=== PATIENT | female | born 1990 | race Caucasian/White ===

== ENCOUNTER → 2016-04-24 | Outpatient (CLI) | payer BC ==
[~2016-04-24] MED LIST: PRENTAB26 PO
--- NOTE | 2016-04-24 12:36 | MAMMOGRAPHY REPORT ---
ULTRASOUND OF RIGHT BREAST: 04/24/2016 CLINICAL HISTORY: 25-year-old woman stopped nursing her child and July 2015 and has felt a lump in the right upper outer quadrant since that time. She reports it is not increasing in size. No skin changes or nipple discharge. No family history of breast cancer. COMPARISON: No prior exams were available for comparison. FINDINGS: Targeted ultrasound was performed in the 10:30 right breast, 4 cm from the nipple, in the area of palpable lump pointed out by the patient. On visual inspection, there is a minimally eryth ematous 3-4 mm lesion on the skin of the 10:30 right breast. On ultrasound, there is an intradermal ovoid hypoechoic lesion. However, no punctum is identified extending to the skin surface. However , this most likely represents an epidermal inclusion cyst. Given that it does not meet all of the s onographic criteria, a short interval follow-up targeted right breast ultrasound is recommended to e nsure stability in 6 months. IMPRESSION: ACR-BI-RADS CATEGORY 3: PROBABLY BENIGN - FOLLOW-UP RECOMMENDED The small superficial palpable lump in the 10:30 right breast most likely represents an intradermal lesion such as an epidermal inclusion cyst. A short interval follow targeted right breast ultrasoun d is recommended to ensure stability and/or resolution in 6 months. These results and recommendatio ns were discussed with the patient at the time of the exam. Sharee Hendrickson M.D. ay/:04/24/2016 10:21:58 Supervisor [employer] Making: Sherlyn NAGEL)(Reji), [facility] letter sent: Follow Up Recommended 3 BI-RADS Code: ACR-BI-RADS Category 3: Probably Benign
== END | disposition home or self-care (01) ==
LOC: C.MAMM 09:41
PROVIDERS: ATTEND Obstetrics & Gynecology
DX: N63 Unspecified lump in breast (principal)

== ENCOUNTER → 2016-07-21 | Outpatient (CLI) | payer BC ==
[2016-07-21 09:37] LABS: PREG INTERNAL NEGATIVE QC NEG CLEAR BACKGROUND; PREG INTERNAL POSITIVE QC POS CONTROL LINE
== END | disposition home or self-care (01) ==
LOC: C.LAB1850 07:42
PROVIDERS: ATTEND Physician Assistant
DX: N64.52 Nipple discharge (principal); N91.2 Amenorrhea, unspecified

== ENCOUNTER 2021-01-02 02:00 | Inpatient (IN) ==
[2021-01-02] MEDS ORDERED: PENICILLIN G POTASSIUM 6 MU in DEXTROSE 5% 250 ML IV STA (02:49)
[2021-01-02 03:18] LABS: Hematocrit (blood only) 33.3 % (37-47); Hemoglobin 11.1 g/dL (12.0-16.0); Mean Corpuscular Hemoglobin 28.6 pg (25-34); Mean Corpuscular Hgb Conc 33.3 g/dL (32-36); Mean Corpuscular Volume 85.8 fL (80-100); Platelet Count 283 K/uL (130-400); RDW Coefficient of Variation 12.4 % (11.5-14.5); RDW Standard Deviation 38.5 fL (36.4-46.3); Red Blood Count 3.88 M/uL (4.2-5.4)
[2021-01-02] MEDS: LACTATED RINGER'S 1,000 ML IV PRN ×2 (03:26→07:59)
[2021-01-02] MEDS ORDERED: PENICILLIN G POTASSIUM 3 MU in DEXTROSE 5% 100 ML IV PRN (06:54)
[2021-01-02] MEDS ORDERED: ePHEDrine sulfate 50 MG/ML AMP ONE (07:15)
[2021-01-02] MEDS ORDERED: SODIUM CHLORIDE 0.9% INJ 10 ML VIAL ONE (07:15)
[2021-01-02] MEDS ORDERED: BUPIVACAINE 0.25% 30 ML VIAL ONE (07:15)
[2021-01-02] MEDS ORDERED: fentaNYL citrate 100 MCG/2 ML VIAL ONE (07:15)
[2021-01-02] MEDS ORDERED: fentaNYL 2MCG/ML ROPIVACAINE 1.25MG/ML 100 ML BAG EPI ONE (07:16)
[2021-01-02] MEDS ORDERED: fentaNYL 2MCG/ML ROPIVACAINE 1.25MG/ML 100 ML BAG EPI PRN (07:22)
[2021-01-02] MEDS ORDERED: diphenhydrAMINE 50 MG/ML VIAL IV PRN (07:22)
[2021-01-02] MEDS ORDERED: ePHEDrine sulfate 50 MG/ML AMP IV PRN (07:22)
[2021-01-02] MEDS ORDERED: NALOXONE HCL 1 MG in SODIUM CHLORIDE 0.9% 1000ML 1,000 ML IV PRN (07:22)
[2021-01-02] MEDS ORDERED: NALBUPHINE HCL INJ 10 MG/ML AMP IV PRN (07:22)
[2021-01-02] MEDS ORDERED: NALOXONE HCL 0.4 MG/1 ML VIAL/CARP IV PRN (07:22)
--- NOTE | 2021-01-02 07:22 | Anesthesiology Consultation ---
Date of Service January 02, 2021 Assessment & Plan ASA ASA2 Proposed Anesthesia Anesthesia Type: Labor Epidural Risk / Benefits Reviewed With: PT / POA / Parent / Guardian, Accepts Plan and Informed Consent Obtained History Height/Weight Height: 5 ft 3 in Weight: 92.533 kg Allergies Allergy/AdvReac Type Severity Reaction Status Date / Time Bactrim Allergy Unknown hives Verified 03/31/15 20:40 cephalexin Allergy Unknown hives Verified 01/02/21 02:25 sulfamethoxazole Allergy Unknown hives Verified 01/02/21 02:25 trimethoprim Allergy Unknown hives Verified 01/02/21 02:25 Medications Home Medications Medication Instructions Recorded Confirmed Last Taken prenat.vits,yash,mnl-acdi-ardsu 1 tab PO DAILY 06/15/20 12/31/20 Unknown acetone (urine) test (Ketone Urine #50 ea 07/02/20 12/31/20 Unknown Test) blood sugar diagnostic (OneTouch #150 ea 07/02/20 12/31/20 Unknown Verio test strips) blood-glucose meter (OneTouch #1 ea 07/02/20 12/31/20 Unknown Verio Flex meter) lancets 33 gauge (OneTouch Delica #150 ea 07/02/20 12/31/20 Unknown Plus Lancet) Active Medications Generic Name Dose Route Start Last Admin Trade Name Freq PRN Reason Stop Dose Admin Lactated Ringer's 1,000 mls @ 125 mls/hr 01/02/21 02:49 01/02/21 07:12 Lr IV 01/04/21 02:48 999 mls/hr .Q8H PRN Infusion L&D Protocol Protocol Penicillin G Potassium 3 mu/ 106 mls @ 100 mls/hr 01/02/21 06:54 01/02/21 07:11 Dextrose IV 01/12/21 06:53 100 mls/hr Q4H PRN Administration Give until delivery Past Medical History Medical History (Updated 09/17/20 @ 11:51 by La Oh MD) Kidney stones Exercise / Class Metabolic Activity II 4-5 Yardwork/Stairs/Walk up hill Past Family History Family History (Updated 06/14/20 @ 16:40 by Malia Stratton) Mother Ovarian cancer Past Surgical History Surgical History (Updated 06/25/20 @ 08:22 by Zoe Dukes MD) Hx of appendectomy S/P wisdom tooth extraction Past Anesthesia History No Hx of Anesthesia Complications and No Family Hx of Anesthesia Complications History of PONV No Hx of PONV and No Hx of Motion Sickness Social History Smoking Status: Never smoker Hx Alcohol Use: No Hx Substance Use: No Review of Systems denies fever/cough/ colds/ chest pain/ SOB/ VINCENZO denies VINCENZO Physical Exam Vital Signs Last Vital Signs Temp 36.6 C 01/02/21 07:19 Pulse 99 H 01/02/21 07:48 Resp 24 01/02/21 07:19 BP 158/58 H 01/02/21 07:46 Pulse Ox 99 01/02/21 07:48 ENMT Mouth: no TMJ abnormality and no dentition abnormality Thyromental Distance: > or= 3.5 Finger Breadths Mallampati Class: II Neck neck extension not limited Respiratory normal respiratory effort; no respiratory distress Auscultation: lungs clear to auscultation bilaterally Cardiovascular Rate/Rhythm: regular rate and regular rhythm Neurologic moves all extremities Psychiatric Orientation: alert and oriented x 3 Testing Laboratory Results 01/02/21 03:11 01/02/21 03:10 POC Glucose 104 H
[2021-01-02] MEDS: OXYTOCIN 30 UNITS/500 ML BAG IV PRN ×2 (08:14→08:48)
[2021-01-02] MEDS ORDERED: LIDOCAINE 1% LOCAL 20 ML VIAL ONE ×2 (08:17→08:29)
[2021-01-02] MEDS ORDERED: SUPERCREAM 0.870% 15 GM JAR EXT PRN (08:47)
[2021-01-02] MEDS ORDERED: DIPHTHERIA/TETANUS/PERTUSSIS 0.5 ML SYR/VIAL IM ONE (08:47)
[2021-01-02] MEDS ORDERED: OXYTOCIN 30 UNITS/500 ML BAG IV PRN (08:47)
[2021-01-02] MEDS ORDERED: ACETAMINOPHEN 325 MG TAB PO PRN (08:47)
[2021-01-02] MEDS ORDERED: IBUPROFEN 600 MG TAB PO PRN (08:47)
[2021-01-02] MEDS ORDERED: BENZOCAINE 20% AER SPR 82.5 GM CAN EXT PRN (08:47)
[2021-01-02] MEDS ORDERED: HYDROCORTISONE ACETATE 25 MG SUPP PR PRN (08:47)
[2021-01-02 09:03] LABS: Base Excess Cord Venous Blood -5.9 mEq/L (-7.7-1.9); Cord Venous Blood HCO3 18 mmol/L (18.4-26.8); Cord Venous Blood PCO2 30 mmHg (30.4-57.2); Cord Venous Blood PO2 32 mmHg (14.1-43.3); Cord Venous Blood pH 7.39 (7.20-7.44)
--- NOTE | 2021-01-02 09:38 | Delivery Summary ---
DATE OF PROCEDURE: 01/02/2021. PROCEDURE: Normal spontaneous vaginal delivery with second-degree perineal laceration repair. SURGEON: Reese Gastelum MD. PREOPERATIVE DIAGNOSES: 1. Single intrauterine at 36 weeks, 0 days gestational age. 2. Spontaneous rupture of membranes with spontaneous labor. 3. Diet-controlled gestational diabetes. POSTOPERATIVE DIAGNOSES: 1. Single intrauterine at 36 weeks, 0 days gestational age. 2. Spontaneous rupture of membranes with spontaneous labor. 3. Diet-controlled gestational diabetes. 4. Status post delivery. ESTIMATED BLOOD LOSS: 300 mL. DRAINS: Straight cath. COMPLICATIONS: None. FINDINGS: Viable female with weight pending and Apgars of 7 and 8 in one and five minutes res pectively. INDICATIONS: The patient is a 30-year-old G2, P1 at 36 weeks, 0 days gestational age, admitted for sp ontaneous rupture of membranes with onset of labor. I first checked, the patient was found to be 3-4 cm dilated with rupture of membranes confirmed AmniSure. The patient was lashon every 3-4 minut es and progressed in labor quickly to complete-complete, +2 station with a strong urge to push of barbara roximately 4-5 hours. The patient pushed over 1 contraction to achieve delivery. DESCRIPTION OF PROCEDURE: The patient progressed to 10 cm dilated, 100% effaced, positive 2 station, pushed over intact perineum with epidural anesthesia, delivered a viable female with weight a nd Apgars as noted above. Head of the delivered in DEVEN position, restituted to right transve rse. Body and shoulders quickly followed. was noted to have good tone, but would not have s pontaneous cry upon delivery. The was stimulated and had intermittent crying with good tone. After approximately 30-45 seconds was still noted to not have a normal spontaneous cry. Dec ision was made to clamp, cut the cord. Cord was double clamped and cut. was taken over to t he waiting nursery staff for further evaluation. Cord segment was obtained. Cord blood was also obt ained. There was noted to be a true knot in the umbilical cord upon delivery. The attention was then turned to delivery of placenta, which was delivered intact, 3-vessel cord, gentle cord traction. On inspection of the perineum, vagina, cervix, there was noted to be a second-degree perineal laceratio n, which was repaired with 3-0 Vicryl in a continuous crown stitch. Needle, sponge, and instrument c ounts were correct at the completion of the case. Both mother and were stable in the immedia te post-delivery period. Job ID: [id number]
--- NOTE | 2021-01-02 10:28 | Anesthesiology Progress Note ---
Date of Service January 02, 2021 Anesthesia Post Procedure Vital Signs Vital Signs: Temp Pulse Resp BP Pulse Ox 01/02/21 10:21 87 144/97 H 01/02/21 10:06 82 142/71 H 01/02/21 09:51 93 H 151/72 H 01/02/21 09:45 20 01/02/21 09:36 90 150/74 H 01/02/21 09:30 20 01/02/21 09:20 86 148/86 H 01/02/21 09:15 18 01/02/21 09:06 89 144/88 H 01/02/21 09:00 20 01/02/21 08:48 98 H 151/74 H 01/02/21 08:45 18 01/02/21 08:43 103 H 164/77 H 01/02/21 08:39 99 H 97 01/02/21 08:38 103 H 161/72 H 01/02/21 08:34 101 H 99 01/02/21 08:33 102 H 157/69 H 01/02/21 08:29 109 H 98 01/02/21 08:28 109 H 157/70 H 90 01/02/21 08:25 105 H 166/60 H 01/02/21 08:24 114 H 99 01/02/21 08:22 112 H 174/81 H 01/02/21 08:19 118 H 92 01/02/21 08:17 108 H 92 01/02/21 08:15 101 H 185/101 H 01/02/21 08:13 104 H 99 01/02/21 08:08 156 H 96 01/02/21 08:05 107 H 135/77 01/02/21 08:03 105 H 98 01/02/21 08:01 96 H 91 01/02/21 07:58 95 H 136/77 97 01/02/21 07:56 93 H 141/78 H 01/02/21 07:54 107 H 147/65 H 94 01/02/21 07:53 93 H 98 01/02/21 07:52 92 H 135/72 01/02/21 07:48 93 H 142/66 H 99 01/02/21 07:46 96 H 158/58 H 01/02/21 07:44 97 H 170/75 H 01/02/21 07:43 95 H 195/102 H 94 01/02/21 07:40 135/95 01/02/21 07:38 105 H 87 L 01/02/21 07:36 96 H 149/84 H 01/02/21 07:35 101 H 94 01/02/21 07:33 120 H 97 01/02/21 07:29 107 H 80 L 01/02/21 07:27 119 H 100 01/02/21 07:24 103 H 148/79 H 01/02/21 07:22 93 H 100 01/02/21 07:19 36.6 C 102 H 24 172/70 H 01/02/21 07:18 106 H 179/83 H 01/02/21 05:45 72 134/95 01/02/21 05:13 36.7 C 01/02/21 03:09 36.9 C 01/02/21 02:30 92 H 138/97 01/02/21 02:13 117 H 131/99 01/02/21 02:11 36.9 C 20 Pain Intensity Bilateral Abdomen: Pain Intensity: 0 Transfer of Care Handoff Completed per policy Notes Mental Status: alert / awake / arousable and participated in evaluation Patient Amnestic to Procedure: Yes Nausea / Vomiting: adequately controlled Pain: adequately controlled Airway Patency, RR, SpO2: stable & adequate BP & HR: stable & adequate Hydration State: stable & adequate Anesthetic Complications: no major complications apparent and Pt Satisfied with anesthetic care
[2021-01-02] MEDS: DOCUSATE SODIUM 100 MG CAP PO SCH (20:24)
--- NOTE | 2021-01-03 07:34 | Obstetrical Progress Note ---
Date of Service January 03, 2021 Assessment & Plan (1) Encounter for care and examination after delivery: 30yo s/p . Doing well. Stable for discharge pending discharge of baby. Subjective Ambulation: ambulating normally Voiding: no voiding problems Passing Gas:: Yes Diet Tolerance:: regular diet Lochia:: Moderate Feeding Type:: breast feeding Physical Exam Constitutional WD/WN, vitals as above Respiratory normal respiratory effort; no respiratory distress and no labored breathing Gastrointestinal (Abdomen) Inspection/Auscultation: abdomen normal to inspection; abdomen not distended Percussion/Palpation: abdomen soft; abdomen nontender, no guarding and abdomen not rigid Genitourinary OB Exam Abdomen: + fundal height Fundus: + firm and + relation to umbilicus (Below); not tender or not boggy Results & Data ([facility]) Vital Signs (Past 12 Hours) Vital Signs Temp Pulse Resp BP 01/03/21 03:30 36.7 C 82 20 135/84 01/02/21 23:30 36.8 C 82 16 133/90
[2021-01-03] MEDS: PRENATAL VITAMIN 1 TAB PO SCH (07:36)
[2021-01-03] MEDS: FERROUS SULFATE 325 MG TAB PO SCH (07:36)
[2021-01-03] MEDS: DOCUSATE SODIUM 100 MG CAP PO SCH ×2 (07:36→20:51)
[2021-01-03] MEDS ORDERED: bisacodyL 5 MG TABEC PO SCH (20:00)
--- NOTE | 2021-01-04 06:15 | Obstetrical Progress Note ---
Date of Service January 04, 2021 Assessment & Plan (1) Encounter for care and examination after delivery: Plan: 30yo PPD 2 s/p . -Stable with no complaints, discharge today. -Vitals reviewed- HDS, afebrile -Encourage ambulation, regular diet -Encourage -F/u in 6 weeks with OB Plan: D/C home today. Instructions reviewed. - Yun Oh MD Admission and Anticipated Discharge Date Admission Date: January 02, 2021 Subjective PPD 2 s/p . Patient seen and examined at bedside. Reports no acute overnight events. Ambulating w/o complaints. Has passed gas and stool. Breast feeding with no complaints. Regular diet, no N/V. Review of Systems Review of Systems: Denies fevers/chills. Denies dyspnea, cough. Denies chest pain. Denies breast pain or discharge. Denies dysuria. Denies headache. Denies back pain. Physical Exam Physical Exam: General: Alert, oriented, no acute distress Cardiac: Regular rate and rhythm, normal S1, S2. No murmurs appreciated. Respiratory: Clear to auscultation b/l with good air flow entry, symmetric chest rise and fall. No wheezes or crackles. No increased work of breathing or accessory muscle use Abdomen: Soft, nontender, nondistended. Fundus firm and palpable at 2 cm below umbilicus. No guarding or rebound. Skin: No rashes or lesions Extremities: Warm, dry, well-perfused with capillary refill <2s b/l. No lower extremity edema, erythema or swelling. Negative Evaristo's sign b/l. Constitutional: WD/WN, vitals as above Eyes: PERRL, conjunctivae normal, anicteric sclerae Neck: normal visual inspection Respiratory: normal respiratory effort and able to speak in complete sentences; no respiratory distress and no labored breathing Cardiovascular: Rate/Rhythm: regular rate and regular rhythm Extremities: no edema Chest (Breasts): Chest: normal inspection of chest Gastrointestinal (Abdomen): Inspection/Auscultation: abdomen normal to inspection Soft, postgravid Psychiatric: A+Ox3, euthymic affect Genitourinary: OB Exam Abdomen: + fundal height Fundus: + firm and + relation to umbilicus (fundus just below umbilicus); not tender Results & Data ([facility]) Vital Signs (Past 12 Hours) Vital Signs Temp Pulse Resp BP Pulse Ox 01/03/21 23:55 37.1 C 82 20 123/83 01/03/21 19:30 37.1 C 92 H 18 128/89 95 Resident Activity Tracking Resident Involvement: Resident Care Provided Care Provided: OB Delivery
[2021-01-04] MEDS ORDERED: bisacodyL 10 MG SUPP PR PRN (08:47)
[2021-01-04] MEDS: PRENATAL VITAMIN 1 TAB PO SCH (08:56)
[2021-01-04] MEDS: FERROUS SULFATE 325 MG TAB PO SCH (08:56)
[2021-01-04] MEDS: DOCUSATE SODIUM 100 MG CAP PO SCH (08:56)
== END 2021-01-04 13:45 | disposition home or self-care (01) | DRG 807 ==
LOC: OPB 02:00 → 4S1 02:02 → 4S2 11:45

== ENCOUNTER 2023-04-26 22:57 | Observation (INO) ==
[2023-04-26 23:33] LABS: Appearance Urine Clear (Clear); Bilirubin Urine Negative (Negative); Blood Urine Negative (Negative); Color Urine Yellow; Glucose Urine UA Negative (Negative); Ketones Urine Negative (Negative); Leukocyte Esterase Urine Negative (Negative); Nitrite Urine Negative (Negative); Protein Urine Negative (Negative); Urobilinogen Urine Negative (Negative)
[2023-04-26 23:37] LABS: Basophils # (auto) 0.08 K/uL (0.00-0.20); Basophils % (auto) 0.6 %; Eosinophils # (auto) 0.45 K/uL (0.00-0.50); Eosinophils % (auto) 3.3 %; Hematocrit (blood only) 42.6 % (37.0-47.0); Hemoglobin 14.5 g/dl (12.0-16.0); Immature Granulocytes # (auto) 0.04 K/uL (0.01-0.20); Immature Granulocytes % (auto) 0.3 %; Lymphocytes # (auto) 3.86 K/uL (1.20-3.40); Lymphocytes % (auto) 28.6 %; Mean Corpuscular Hemoglobin 28.4 pg (25.0-34.0); Mean Corpuscular Volume 83.5 fL (80.0-100.0); Mean Platelet Volume 9.6 fL (9.4-12.4); Monocytes # (auto) 0.98 K/uL (0.11-0.59); Monocytes % (auto) 7.3 %; Neutrophils # (auto) 8.09 K/uL (1.40-6.50); Neutrophils % (auto) 59.9 %; Platelet Count 397 K/uL (130-400); RDW Coefficient of Variation 12.2 % (11.5-14.5); RDW Standard Deviation 37.1 fL (36.4-46.3)
[2023-04-26] MEDS ORDERED: SODIUM CHLORIDE 0.9% 1,000 ML IV ONE (23:43)
[2023-04-26] MEDS ORDERED: ACETAMINOPHEN 1,000 MG/100 ML VIAL IV STA (23:43)
[2023-04-26] MEDS ORDERED: METOCLOPRAMIDE HCL INJ 5 MG/ML 2 ML VIAL IV STA (23:43)
[2023-04-26] MEDS ORDERED: diphenhydrAMINE 50 MG/ML VIAL IV STA (23:43)
[2023-04-26 23:54] LABS: Pregnancy Test, Serum Negative (Negative)
--- NOTE | 2023-04-26 23:54 | Emergency Department Note ---
Impression & Plan Carotid artery dissection, Headache, Abnormal head CT ED Provider Note CHIEF COMPLAINT: Headache since Sunday, high blood pressure HISTORY OF PRESENT ILLNESS: This 32 year old female patient presents to the emergency department via private vehicle for evaluation of headache since Sunday. The patient states she has had a left-sided headache which seem to come on somewhat suddenly on Sunday. The patient states that she intermittently gets a sharp, shooting pulsatile type of pain from the back of the left side of her head into her left ear. These pains are associated with "hearing my valves while my heart is beating" in the back of the patient's head. The patient states that the headache is there constantly, has been constant since Sunday. She states that the sharp, shooting pains last about 2 to 3 minutes and, few times an hour. The patient states she did see her PCP today and was started on 5 mg amlodipine due to an elevated blood pressure in the 150s systolic. The patient states she took the amlodipine but did not experience any improvement. In fact, she notes that her symptoms seem to have worsened throughout the day. This brought her to the emergency department. The patient does admit to home care scheduler over the past approximately 6 weeks. She states she has been going 1-2 times per week due to her "hips out of alignment". The patient states she is experiencing full spinal manipulation including cervical manipulation. She did have a manipulation on Sunday of last week, 2 days prior to the onset of the headache. She states that her next manipulation was on Sunday. REVIEW OF SYSTEMS: A 10 system review of systems was performed with positives and pertinent negatives listed in the history of present illness. All other systems were reviewed and are negative. ALLERGIES: Bactrim, Keflex PHYSICAL EXAM: VITALS: Vitals are noted on the nurse's note and reviewed by myself. Vital signs stable. GENERAL: This is a 32-year-old female, in no acute distress, nondiaphoretic, well-developed well-nourished. SKIN: The skin was without rashes, erythema, edema, or bruising. There is no tenting of the skin. Capillary refill less than 2 seconds. HEAD: Normocephalic atraumatic. EARS: External auditory canals clear, tympanic membranes pearly hardin without erythema or effusion bilaterally. No hemotympanum. Negative jon sign EYES: Pupils equal round and reactive to light and accommodation. Conjunctivae without injection, sclerae without icterus. Extraocular movements intact. NOSE: Patent, turbinates without inflammation or discharge. No sinus tenderness. MOUTH: Mucous membranes moist. Tonsils are not enlarged. Pharynx without erythema or exudate. Uvula midline. Airway patent. Tongue does not deviate. NECK: Supple without nuchal rigidity. No lymphadenopathy. Cervical spine is nontender. No JVD. No carotid bruits. HEART: Regular rate and rhythm without murmurs gallops or rubs. LUNGS: Clear to auscultation bilaterally without wheezes, rales or rhonchi. No retractions or accessory muscle use. ABDOMEN: Positive bowel sounds x 4. Soft, nontender, without masses or organomegaly. Ly sign negative. No guarding or rebound tenderness. MUSCULOSKELETAL: No muscle atrophy, erythema, or edema noted. Full range of motion without joint tenderness in all extremities. No tenderness to palpation. Normal gait. Strength 5/5 throughout. NEURO: Patient was alert and oriented to person place and time. Normal sensation to light and sharp touch. Deep tendon reflexes 2+ throughout. No focal neurological deficits. An order was placed for continuous panel monitor. The monitor showed a sinus tachycardia at a ventricular rate of 101 bpm, per my interpretation. EKG, per my interpretation: Sinus tachycardia with a ventricular rate of [address] elevation or depression. No T wave inversion. No significant change when compared to EKG from 07/06/2022 EMERGENCY DEPARTMENT COURSE: The patient was seen and evaluated as above. Patient presents today for unilateral headache which came on suddenly on Sunday. She has been undergoing chiropractic manipulation for several weeks. On arrival, the patient was found to be hypertensive. She is experiencing pulsatile type of sharp pains through the left side of the head radiating from the posterior aspect of the head to the ear. Given the patient's history and physical examination and hypertension, I was concerned for possible arterial dissection. I did recommend labs and imaging. IV access was obtained, labs were drawn. Patient was medicated with IV fluids, Reglan, Benadryl, and acetaminophen. CT imaging of the head and CT angiogram imaging of the head and neck were performed. CT imaging concerning for "Dissection involving the distal aspect of the left internal carotid artery with diffuse narrowing and intimal flap visualized extending into the petrous portion of the left internal carotid artery as described." Labs reviewed. Mild leukocytosis of 13,500. No anemia or thrombocytopenia. INR 0.9. Renal, hepatic function and electrolytes without significant abnormality. hCG negative. Urinalysis negative for blood or evidence of infection. Lyme disease and anaplasmosis testing is negative. I discussed case with my attending physician I discussed the case with Dr. Novak, [facility] neurologist on-call. We reviewed the imaging studies and radiology report. Recommendation made to start the patient on aspirin and obtain an MRI. He notes that he will consult on the patient tomorrow. The patient was updated. She was reassessed and notes resolution of her headache. Patient was medicated with 325 mg of aspirin. MRI of the brain without contrast was ordered. I discussed the case with Dr. Choudhury, [facility] hospitalist. He did agree to see and evaluate the patient. Please see hospitalist dictation regarding ongoing management care of this patient. Differential diagnosis includes Migraine headache, meningitis, sinusitis, CO exposure, ICH, SAH, infection, tumor, headache, sinus thrombosis, arterial dissection, as well as other pathologies. I attest that I have personally reviewed the patient's current medication list. Patient was found to have an elevated blood pressure and was referred to their primary doctor for recheck and further treatment. The chart was completed utilizing [employer] Speech voice recognition software. Grammatical errors, random word insertions, pronoun errors, and incomplete sentences are an occasional consequence of this system due to software limitations, ambient noise, and hardware issues. Any formal questions or concerns about the content, text, or information contained within the body of this dictation should be directly addressed to the provider for clarification. Past Med/Surg History Medical History Encounter for pre-operative examination Encounter for care and examination after delivery Encounter for anatomic survey Encounter for supervision of normal in multigravida, antepartum Vertigo Abnormal CT of brain Ureteral calculus, left Hemangioma [id number] right hepatic lob hyperechoic nodule, possible hemangioma on 12/14/22 abdominal u/s History of COVID-19 hx - no hosp; resolved Cholelithiasis Kidney stones able to pass Surgical History (Updated 02/20/23 @ 12:07 by Juan Diego Chaney DO, FACS) Hx laparoscopic cholecystectomy (02/07/23) Robotic Assisted Laparoscopic Cholecystectomy (Not Applicable) - Juan Diego Chaney DO, FACS History of surgical removal of pilonidal cyst S/P wisdom tooth extraction Hx of appendectomy Family History Mother Ovarian cancer Father Heart disease Social History Smoking Status: Former smoker Tobacco Type: Cigarettes Second Hand Exposure: No; Do You Dip or Chew Tobacco: No; Hx Alcohol Use: No Hx Substance Use: No Preferred Language: [place] Verdean Communication Ability: Effective Shower Enclosure Installer Required: No Beliefs That Will Affect Care: None marital status: Single marital status details: FOB: Emerson (24) [phone] Current Living Situation: Spouse Current Living Situation Comment: Kaylah and2 children current occupational status: employed current occupation: [employer] for [employer] How many Children do You have: 2 Feels Safe at Home: Yes during the past year weight has: increased > 10 lbs Assistive Devices: None Allergies Allergies Allergy/AdvReac Type Severity Reaction Status Date / Time cephalexin Allergy Unknown hives Verified 02/20/23 11:20 sulfamethoxazole Allergy Unknown hives Verified 02/20/23 11:20 trimethoprim Allergy Unknown hives Verified 02/20/23 11:20 Home Meds Home Medications Medication Instructions Recorded Confirmed sertraline 50 mg tablet 50 mg PO DAILY 04/27/23 04/27/23 Results & Data (ED) Vital Signs Vital Signs - 24 hr 04/26/23 23:00 04/26/23 23:49 04/26/23 23:49 Temperature 36.6 C Temperature Source Temporal Artery Scan Pulse Rate 104 H 101 H Pulse Rate [Right Finger] Pulse Rate from SpO2 Sensor Pulse Rhythm Regular Respiratory Rate 18 Respiratory Effort / Characteristics Non-Labored Spontaneous Respiratory Depth Normal Respiratory Pattern Regular Blood Pressure 187/123 H 155/114 H Blood Pressure [Left Arm] Blood Pressure Mean 144 134 Blood Pressure Mean [Left Arm] Blood Pressure Position Lying Blood Pressure Position [Left Arm] Pulse Oximetry 96 Oxygen Delivery Method Room Air Sepsis Recent Fever Within 48 Hours No Sepsis New/Unexplained Change in Mental Status No Sepsis Action Taken by Nursing No Action Required 04/26/23 23:50 04/27/23 00:00 04/27/23 00:10 Temperature Temperature Source Pulse Rate 98 H 89 98 H Pulse Rate [Right Finger] Pulse Rate from SpO2 Sensor 94 H 91 H 100 H Pulse Rhythm Respiratory Rate 18 21 20 Respiratory Effort / Characteristics Respiratory Depth Respiratory Pattern Blood Pressure Blood Pressure [Left Arm] Blood Pressure Mean Blood Pressure Mean [Left Arm] Blood Pressure Position Blood Pressure Position [Left Arm] Pulse Oximetry 97 97 98 Oxygen Delivery Method Sepsis Recent Fever Within 48 Hours Sepsis New/Unexplained Change in Mental Status Sepsis Action Taken by Nursing 04/27/23 00:20 04/27/23 00:36 04/27/23 00:36 Temperature Temperature Source Pulse Rate 101 H 94 H Pulse Rate [Right Finger] Pulse Rate from SpO2 Sensor 103 H 94 H Pulse Rhythm Respiratory Rate 23 18 Respiratory Effort / Characteristics Respiratory Depth Respiratory Pattern Blood Pressure 150/97 H Blood Pressure [Left Arm] Blood Pressure Mean 129 Blood Pressure Mean [Left Arm] Blood Pressure Position Blood Pressure Position [Left Arm] Pulse Oximetry 98 99 Oxygen Delivery Method Sepsis Recent Fever Within 48 Hours Sepsis New/Unexplained Change in Mental Status Sepsis Action Taken by Nursing 04/27/23 00:40 04/27/23 00:50 04/27/23 01:00 Temperature Temperature Source Pulse Rate 90 90 78 Pulse Rate [Right Finger] Pulse Rate from SpO2 Sensor 89 89 79 Pulse Rhythm Respiratory Rate 17 19 16 Respiratory Effort / Characteristics Respiratory Depth Respiratory Pattern Blood Pressure Blood Pressure [Left Arm] Blood Pressure Mean Blood Pressure Mean [Left Arm] Blood Pressure Position Blood Pressure Position [Left Arm] Pulse Oximetry 97 97 98 Oxygen Delivery Method Sepsis Recent Fever Within 48 Hours Sepsis New/Unexplained Change in Mental Status Sepsis Action Taken by Nursing 04/27/23 01:00 04/27/23 01:10 04/27/23 01:20 Temperature Temperature Source Pulse Rate 90 79 Pulse Rate [Right Finger] Pulse Rate from SpO2 Sensor 88 81 Pulse Rhythm Respiratory Rate 23 21 Respiratory Effort / Characteristics Respiratory Depth Respiratory Pattern Blood Pressure 141/96 H Blood Pressure [Left Arm] Blood Pressure Mean 117 Blood Pressure Mean [Left Arm] Blood Pressure Position Blood Pressure Position [Left Arm] Pulse Oximetry 96 97 Oxygen Delivery Method Sepsis Recent Fever Within 48 Hours Sepsis New/Unexplained Change in Mental Status Sepsis Action Taken by Nursing 04/27/23 01:30 04/27/23 01:30 04/27/23 01:40 Temperature Temperature Source Pulse Rate 86 80 Pulse Rate [Right Finger] Pulse Rate from SpO2 Sensor 87 80 Pulse Rhythm Respiratory Rate 27 H 21 Respiratory Effort / Characteristics Respiratory Depth Respiratory Pattern Blood Pressure 147/98 H Blood Pressure [Left Arm] Blood Pressure Mean 114 Blood Pressure Mean [Left Arm] Blood Pressure Position Blood Pressure Position [Left Arm] Pulse Oximetry 99 98 Oxygen Delivery Method Sepsis Recent Fever Within 48 Hours Sepsis New/Unexplained Change in Mental Status Sepsis Action Taken by Nursing 04/27/23 01:51 04/27/23 01:54 04/27/23 01:54 Temperature Temperature Source Pulse Rate 84 80 Pulse Rate [Right Finger] 81 Pulse Rate from SpO2 Sensor 85 Pulse Rhythm Respiratory Rate 18 17 17 Respiratory Effort / Characteristics Respiratory Depth Respiratory Pattern Blood Pressure Blood Pressure [Left Arm] 147/98 H Blood Pressure Mean Blood Pressure Mean [Left Arm] 114 Blood Pressure Position Blood Pressure Position [Left Arm] Sitting Pulse Oximetry 97 98 98 Oxygen Delivery Method Room Air Room Air Sepsis Recent Fever Within 48 Hours Sepsis New/Unexplained Change in Mental Status Sepsis Action Taken by Nursing 04/27/23 02:00 04/27/23 02:00 04/27/23 02:10 Temperature Temperature Source Pulse Rate 87 86 Pulse Rate [Right Finger] Pulse Rate from SpO2 Sensor 83 87 Pulse Rhythm Respiratory Rate 21 23 Respiratory Effort / Characteristics Respiratory Depth Respiratory Pattern Blood Pressure 144/100 H Blood Pressure [Left Arm] Blood Pressure Mean 131 Blood Pressure Mean [Left Arm] Blood Pressure Position Blood Pressure Position [Left Arm] Pulse Oximetry 98 99 Oxygen Delivery Method Sepsis Recent Fever Within 48 Hours Sepsis New/Unexplained Change in Mental Status Sepsis Action Taken by Nursing 04/27/23 02:20 04/27/23 02:26 04/27/23 02:26 Temperature Temperature Source Pulse Rate 108 H 102 H Pulse Rate [Right Finger] Pulse Rate from SpO2 Sensor 110 H 102 H Pulse Rhythm Respiratory Rate 24 17 Respiratory Effort / Characteristics Respiratory Depth Respiratory Pattern Blood Pressure 152/114 H Blood Pressure [Left Arm] Blood Pressure Mean 135 Blood Pressure Mean [Left Arm] Blood Pressure Position Blood Pressure Position [Left Arm] Pulse Oximetry 99 99 Oxygen Delivery Method Sepsis Recent Fever Within 48 Hours Sepsis New/Unexplained Change in Mental Status Sepsis Action Taken by Nursing 04/27/23 02:30 04/27/23 02:30 04/27/23 02:40 Temperature Temperature Source Pulse Rate 110 H 100 H Pulse Rate [Right Finger] Pulse Rate from SpO2 Sensor 107 H 101 H Pulse Rhythm Respiratory Rate 26 H 21 Respiratory Effort / Characteristics Respiratory Depth Respiratory Pattern Blood Pressure 147/117 H Blood Pressure [Left Arm] Blood Pressure Mean 133 Blood Pressure Mean [Left Arm] Blood Pressure Position Blood Pressure Position [Left Arm] Pulse Oximetry 99 99 Oxygen Delivery Method Sepsis Recent Fever Within 48 Hours Sepsis New/Unexplained Change in Mental Status Sepsis Action Taken by Nursing 04/27/23 02:45 04/27/23 02:50 Temperature Temperature Source Pulse Rate 97 H Pulse Rate [Right Finger] Pulse Rate from SpO2 Sensor 97 H Pulse Rhythm Respiratory Rate 22 Respiratory Effort / Characteristics Non-Labored Respiratory Depth Normal Respiratory Pattern Blood Pressure Blood Pressure [Left Arm] Blood Pressure Mean Blood Pressure Mean [Left Arm] Blood Pressure Position Blood Pressure Position [Left Arm] Pulse Oximetry 97 Oxygen Delivery Method Sepsis Recent Fever Within 48 Hours Sepsis New/Unexplained Change in Mental Status Sepsis Action Taken by Nursing Laboratory Data 04/26/23 23:17 04/26/23 23:17 Lab Results 04/26/23 04/26/23 Range/Units 23:17 23:20 WBC 13.50 H (4.8-10.8) K/ul RBC 5.10 (4.20-5.40) M/uL Hgb 14.5 (12.0-16.0) g/dl Hct 42.6 (37.0-47.0) % MCV 83.5 (80.0-100.0) fL MCH 28.4 (25.0-34.0) pg MCHC 34.0 (32.0-36.0) g/dL RDW Std Deviation 37.1 (36.4-46.3) fL RDW Coeff of Pili 12.2 (11.5-14.5) % Plt Count 397 (130-400) K/uL MPV 9.6 (9.4-12.4) fL Immature Gran % (Auto) 0.3 % Neut % (Auto) 59.9 % Lymph % (Auto) 28.6 % Mcminn % (Auto) 7.3 % Eos % (Auto) 3.3 % Baso % (Auto) 0.6 % Neut # (Auto) 8.09 H (1.40-6.50) K/uL Lymph # (Auto) 3.86 H (1.20-3.40) K/uL Mcminn # (Auto) 0.98 H (0.11-0.59) K/uL Eos # (Auto) 0.45 (0.00-0.50) K/uL Baso # (Auto) 0.08 (0.00-0.20) K/uL Immature Gran # (Auto) 0.04 (0.01-0.20) K/uL PT 10.3 (9.0-12.0) Seconds INR 0.9 (0.9-1.1) APTT 26 (21-31) Seconds PTT Ratio 0.9 Sodium 138 (136-145) mmol/L Potassium 4.0 (3.5-5.1) mmol/L Chloride 107 (98-107) mmol/L Carbon Dioxide 23 (21-32) mmol/L Anion Gap 8 (3-11) BUN 11 (6-23) mg/dl Creatinine 0.59 L (0.6-1.2) mg/dl Est Cr Clr Drug Dosing 148.5 ml/min Est GFR ( Amer) 140.6 ml/min Est GFR (Non-Af Amer) 121.3 ml/min BUN/Creatinine Ratio 18.6 (10-20) Glucose 118 H (70-99(Fasting)) mg/dl Calcium 9.8 (8.6-10.3) mg/dl Total Bilirubin 0.2 (0.2-1.0) mg/dl AST 12 L (13-39) U/L ALT 12 (7-52) U/L Alkaline Phosphatase 69 (34-104) U/L Total Protein 7.8 (6.0-8.3) gm/dl Albumin 4.5 (3.4-5.0) gm/dl Globulin 3.3 (2.5-4.0) gm/dl Albumin/Globulin Ratio 1.4 (0.9-2) HCG, Qual Negative (Negative) Urine Color Yellow Urine Appearance Clear (Clear) Urine pH 7.0 (4.5-7.5) Ur Specific [place] 1.020 (1.000-1.030) Urine Protein Negative (Negative) Urine Glucose (UA) Negative (Negative) Urine Ketones Negative (Negative) Urine Blood Negative (Negative) Urine Nitrite Negative (Negative) Urine Bilirubin Negative (Negative) Urine Urobilinogen Negative (Negative) Ur Leukocyte Esterase Negative (Negative) Anaplasma Smear See Comment Lyme Disease IgG Ab Negative (Negative) Lyme Disease IgM Ab Negative (Negative) Administered Medications Discontinued Medications Aspirin Buffered (Aspirin/Alum/Magnes/Gurinder Carb 325 Mg Tab) 325 mg PO NOW STA Stop: 04/27/23 02:03 Last Admin: 04/27/23 02:16 Dose: 325 mg Documented By: MARELY Diphenhydramine HCl (Diphenhydramine 50 Mg/Ml Vial) 25 mg IV NOW STA Stop: 04/26/23 23:44 Last Admin: 04/26/23 23:59 Dose: 25 mg Documented By: ADAM Sodium Chloride (Nss) 1,000 mls @ 999 mls/hr IV .Q1H1M ONE Stop: 04/27/23 00:43 Last Infusion: 04/27/23 01:51 Dose: Infused Documented By: Admin: 04/26/23 23:59 Dose: 999 mls/hr Documented By: ADAM Acetaminophen (Ofirmev) 1,000 mg in 100 mls @ 400 mls/hr IV NOW STA Stop: 04/26/23 23:57 Last Infusion: 04/27/23 01:51 Dose: Infused Documented By: Admin: 04/26/23 23:59 Dose: 400 mls/hr Documented By: ADAM Ioversol (Optiray 320 125ml) 118 ml IV ONCE ONE Stop: 04/27/23 00:27 Last Admin: 04/27/23 00:27 Dose: 118 ml Documented By: MARIANNE Metoclopramide HCl (Metoclopramide Hcl Inj 5 Mg/Ml 2 Ml Vial) 10 mg IV NOW STA Stop: 04/26/23 23:44 Last Admin: 04/26/23 23:59 Dose: 10 mg Documented By: ADAM Imaging Data Radiologist's Impression: Head CT 04/26/23 23:42 Exam(s): CT HEAD Without Contrast EXAM: CT Head Without Intravenous Contrast CLINICAL HISTORY: Reason for exam: acute headache. TECHNIQUE: Axial computed tomography images of the head/brain without intravenous contrast. CTDI is 36.67 mGy and DLP is 1147.09 mGy-cm. Automated exposure control was utilized for the study. A dose lowering technique was utilized adhering to the principles of ALARA. COMPARISON: 10/19/2013. FINDINGS: Brain: Unremarkable. No hemorrhage. No significant white matter disease. No edema. Ventricles: Unremarkable. No ventriculomegaly. Bones/joints: Unremarkable. No acute fracture. Soft tissues: Unremarkable. Sinuses: Unremarkable as visualized. No acute sinusitis. Mastoid air cells: Unremarkable as visualized. No mastoid effusion. IMPRESSION: Normal CT brain. Electronically signed by: Nicolaas Anne MD 04/27/23 01:16 AM Head CTA 04/26/23 23:42 Exam(s): CTA HEAD With Contrast IV Amt: 118 cc opti 320 EXAM: CT Angiography Head With Intravenous Contrast CLINICAL HISTORY: Reason for exam: acute headache, recent chiropract manipulation. TECHNIQUE: Axial computed tomographic angiography images of the head with intravenous contrast. CTDI is 36.67 mGy and DLP is 1147.09 mGy-cm. Automated exposure control was utilized for the study. A dose lowering technique was utilized adhering to the principles of ALARA. MIP reconstructed images were created and reviewed. CONTRAST: Patient received 118 cc opti 320 of IV contrast COMPARISON: None. FINDINGS: Right internal carotid artery: Minimal calcified atherosclerotic plaque throughout the cavernous portion of the right internal carotid artery with no stenosis. No aneurysm. Right anterior cerebral artery: Unremarkable. No occlusion or significant stenosis. No aneurysm. Right middle cerebral artery: Unremarkable. No occlusion or significant stenosis. No aneurysm. Right posterior cerebral artery: Unremarkable. No occlusion or significant stenosis. No aneurysm. Right vertebral artery: Unremarkable as visualized. Left internal carotid artery: No acute findings. Intracranial segment is patent with no significant stenosis. No aneurysm. Left anterior cerebral artery: Unremarkable. No occlusion or significant stenosis. No aneurysm. Left middle cerebral artery: Unremarkable. No occlusion or significant stenosis. No aneurysm. Left posterior cerebral artery: Unremarkable. No occlusion or significant stenosis. No aneurysm. Left vertebral artery: Unremarkable as visualized. Basilar artery: Unremarkable. No occlusion or significant stenosis. No aneurysm. IMPRESSION: Negative CT angiogram of the brain with no focal stenosis, occlusion or aneurysm involving the [place] of [place]. Electronically signed by: Nicolasa Anne MD 04/27/23 01:29 AM Neck CTA 04/26/23 23:42 CR Exam(s): CTA NECK With Contrast IV Amt: 118 cc opti 320 EXAM: CT Angiography Neck With Intravenous Contrast CLINICAL HISTORY: Reason for exam: acute headache, recent chiropract manipulation. TECHNIQUE: Routine carotid CT angiography protocol was performed with intravenous contrast. NASCET criteria using the distal ICAs for comparison were used for evaluation of stenoses. CTDI is 36.67 mGy and DLP is 1147.09 mGy-cm. Automated exposure control was utilized for the study. A dose lowering technique was utilized adhering to the principles of ALARA. MIP reconstructed images were created and reviewed. CONTRAST: Patient received 118 cc opti 320 of IV contrast COMPARISON: None. FINDINGS: VASCULATURE: Right common carotid artery: Unremarkable. No occlusion or significant stenosis. No dissection. Right internal carotid artery: Unremarkable. Extracranial segment is patent with no occlusion or significant stenosis. No dissection. Right external carotid artery: Unremarkable. No occlusion. Right vertebral artery: Unremarkable. No occlusion or significant stenosis. No dissection. Left common carotid artery: Unremarkable. No occlusion or significant stenosis. No dissection. Left internal carotid artery: There is significant distal aspect of the left carotid artery with evidence of intimal flap consistent with dissection. This extends into the petrous portion of the left internal carotid artery. Extracranial segment is patent with no occlusion or significant stenosis. Left external carotid artery: Unremarkable. No occlusion. Left vertebral artery: Unremarkable. No occlusion or significant stenosis. No dissection. NECK: Bones/joints: Unremarkable. No acute fracture. Soft tissues: Unremarkable. Lung apices: Clear. CAROTID STENOSIS REFERENCE USING NASCET CRITERIA: % ICA stenosis = (1 - narrowest ICA diameter/diameter of distal cervical ICA) x 100. Mild - <50% stenosis. Moderate - 50-69% stenosis. Severe - 70-94% stenosis. Near occlusion - 95-99% stenosis. Occluded - 100% stenosis. IMPRESSION: 1. 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 2. Remainder of the CT angiogram of the neck is unremarkable. Communications: Call Doctor Other Electronically signed by: Nicolasa Anne MD 04/27/23 01:31 AM Brain MRI 04/27/23 02:41 Exam(s): MRI HEAD Without Contrast EXAM: MR Head Without Intravenous Contrast CLINICAL HISTORY: Reason for exam: left internal carotid artery dissection on CT. TECHNIQUE: Magnetic resonance images of the head/brain without intravenous contrast in multiple planes. COMPARISON: MRI brain dated 10/20/2013. CT brain dated 04/27/2023. CT brain dated 10/19/2013. FINDINGS: Brain: Trace focal area of susceptibility artifact identified within the deep white matter of right posterior parietal lobe, just adjacent to the right occipital lobe most compatible with venous angioma/DVA measuring 7.2 mm. No hemorrhage. No acute infarct. Ventricles: Unremarkable. No ventriculomegaly. Bones/joints: Unremarkable. No acute fracture. Sinuses: Unremarkable as visualized. No acute sinusitis. Mastoid air cells: Unremarkable as visualized. No mastoid effusion. Orbits: Unremarkable as visualized. IMPRESSION: 1. Trace calcification within the RIGHT posterior parietal lobe measuring 7.2 mm, stable in the interval and most compatible with venous angioma/DVA. 2. No acute stroke or intracranial hemorrhage. 3. No acute intracranial process, stable study in the interval. Electronically signed by: Nicolasa Anne MD 04/27/23 03:54 AM Discharge Plan Visit Data Chief Complaint: Headache Stated Complaint: HEADACHE;DR TODAY, NEW MEDICATION, HEADACHE WORSE ED Provider: Pat Arriaga ED Midlevel Provider: Funmi Campo Discharge Problem: Carotid artery dissection, Headache, Abnormal head CT Patient Disposition: Admitted As Inpatient Discharge Instructions Interventions: ED Discharge Assessment Last Done: 04/27/23 03:20
[2023-04-26 23:55] LABS: Albumin Globulin Ratio 1.4 (0.9-2); Albumin Level 4.5 gm/dl (3.4-5.0); BUN Creatinine Ratio 18.6 (10-20); Bilirubin,Total 0.2 mg/dl (0.2-1.0); Calcium 9.8 mg/dl (8.6-10.3); Creatinine Clr Calc Pharmacy 148.5 ml/min; Est GFR (African American) 140.6 ml/min; Est GFR (Non-African American) 121.3 ml/min; Globulin 3.3 gm/dl (2.5-4.0); Total Protein 7.8 gm/dl (6.0-8.3)
[2023-04-27 00:05] LABS: INR 0.9 (0.9-1.1); Partial Thromboplastin Ratio 0.9; Partial Thromboplastin Time 26 Seconds (21-31); Prothrombin Time 10.3 Seconds (9.0-12.0)
[2023-04-27 00:19] LABS: Lyme Ab IgG w/WB Rflx Negative (Negative); Lyme Ab IgM w/WB Rflx Negative (Negative)
[2023-04-27] MEDS ORDERED: OPTIRAY 320 125ml IV ONE (00:26)
--- NOTE | 2023-04-27 01:51 | CT Scan Report ---
Exam(s): CT HEAD Without Contrast EXAM: CT Head Without Intravenous Contrast CLINICAL HISTORY: Reason for exam: acute headache. TECHNIQUE: Axial computed tomography images of the head/brain without intravenous contrast. CTDI is 36.67 mGy and DLP is 1147.09 mGy-cm. Automated exposure control was utilized for the study. A dose lowering technique was utilized adhering to the principles of ALARA. COMPARISON: 10/19/2013. FINDINGS: Brain: Unremarkable. No hemorrhage. No significant white matter disease. No edema. Ventricles: Unremarkable. No ventriculomegaly. Bones/joints: Unremarkable. No acute fracture. Soft tissues: Unremarkable. Sinuses: Unremarkable as visualized. No acute sinusitis. Mastoid air cells: Unremarkable as visualized. No mastoid effusion. IMPRESSION: Normal CT brain. Electronically signed by: Nicolasa Anne MD 04/27/23 01:16 AM
--- NOTE | 2023-04-27 01:52 | CT Scan Report ---
Exam(s): CTA HEAD With Contrast IV Amt: 118 cc opti 320 EXAM: CT Angiography Head With Intravenous Contrast CLINICAL HISTORY: Reason for exam: acute headache, recent chiropract manipulation. TECHNIQUE: Axial computed tomographic angiography images of the head with intravenous contrast. CTDI is 36.67 mGy and DLP is 1147.09 mGy-cm. Automated exposure control was utilized for the study. A dose lowering technique was utilized adhering to the principles of ALARA. MIP reconstructed images were created and reviewed. CONTRAST: Patient received 118 cc opti 320 of IV contrast COMPARISON: None. FINDINGS: Right internal carotid artery: Minimal calcified atherosclerotic plaque throughout the cavernous portion of the right internal carotid artery with no stenosis. No aneurysm. Right anterior cerebral artery: Unremarkable. No occlusion or significant stenosis. No aneurysm. Right middle cerebral artery: Unremarkable. No occlusion or significant stenosis. No aneurysm. Right posterior cerebral artery: Unremarkable. No occlusion or significant stenosis. No aneurysm. Right vertebral artery: Unremarkable as visualized. Left internal carotid artery: No acute findings. Intracranial segment is patent with no significant stenosis. No aneurysm. Left anterior cerebral artery: Unremarkable. No occlusion or significant stenosis. No aneurysm. Left middle cerebral artery: Unremarkable. No occlusion or significant stenosis. No aneurysm. Left posterior cerebral artery: Unremarkable. No occlusion or significant stenosis. No aneurysm. Left vertebral artery: Unremarkable as visualized. Basilar artery: Unremarkable. No occlusion or significant stenosis. No aneurysm. IMPRESSION: Negative CT angiogram of the brain with no focal stenosis, occlusion or aneurysm involving the [place] of [place]. Electronically signed by: Nicolasa Anne MD 04/27/23 01:29 AM
--- NOTE | 2023-04-27 01:52 | CT Scan Report ---
Exam(s): CTA NECK With Contrast IV Amt: 118 cc opti 320 EXAM: CT Angiography Neck With Intravenous Contrast CLINICAL HISTORY: Reason for exam: acute headache, recent chiropract manipulation. TECHNIQUE: Routine carotid CT angiography protocol was performed with intravenous contrast. NASCET criteria using the distal ICAs for comparison were used for evaluation of stenoses. CTDI is 36.67 mGy and DLP is 1147.09 mGy-cm. Automated exposure control was utilized for the study. A dose lowering technique was utilized adhering to the principles of ALARA. MIP reconstructed images were created and reviewed. CONTRAST: Patient received 118 cc opti 320 of IV contrast COMPARISON: None. FINDINGS: VASCULATURE: Right common carotid artery: Unremarkable. No occlusion or significant stenosis. No dissection. Right internal carotid artery: Unremarkable. Extracranial segment is patent with no occlusion or significant stenosis. No dissection. Right external carotid artery: Unremarkable. No occlusion. Right vertebral artery: Unremarkable. No occlusion or significant stenosis. No dissection. Left common carotid artery: Unremarkable. No occlusion or significant stenosis. No dissection. Left internal carotid artery: There is significant distal aspect of the left carotid artery with evidence of intimal flap consistent with dissection. This extends into the petrous portion of the left internal carotid artery. Extracranial segment is patent with no occlusion or significant stenosis. Left external carotid artery: Unremarkable. No occlusion. Left vertebral artery: Unremarkable. No occlusion or significant stenosis. No dissection. NECK: Bones/joints: Unremarkable. No acute fracture. Soft tissues: Unremarkable. Lung apices: Clear. CAROTID STENOSIS REFERENCE USING NASCET CRITERIA: % ICA stenosis = (1 - narrowest ICA diameter/diameter of distal cervical ICA) x 100. Mild - <50% stenosis. Moderate - 50-69% stenosis. Severe - 70-94% stenosis. Near occlusion - 95-99% stenosis. Occluded - 100% stenosis. IMPRESSION: 1. 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 2. Remainder of the CT angiogram of the neck is unremarkable. Communications: Call Doctor Other Electronically signed by: Nicolasa Anne MD 04/27/23 01:31 AM
[2023-04-27] MEDS ORDERED: ASPIRIN/ALUM/MAGNES/CAL CARB 325 MG TAB PO STA (02:02)
--- NOTE | 2023-04-27 03:12 | History & Physical Report ---
Date of Service April 27, 2023 Assessment & Plan (1) Headache: Plan: 32 yo female with PMHx of depression presents with headache. #Headache #ICA Dissection -presented with 5 days persistent L sided headache. Labs with mild leukocytosis otherwise unremarkable. HDS. Without neurological deficits. Findings as below. Most likely the dissection was caused by manipulation of the cervical spine from chiropractic sessions. -CTA head/neck: Dissection involving the distal aspect of the left internal carotid artery with diffuse narrowing and intimal flap visualized extending into the petrous portion of the left internal carotid artery -Brain MRI: no stroke; incidental finding of trace calcification within the RIGHT posterior parietal lobe measuring 7.2 mm, stable in the interval and most compatible with venous angioma/DVA -ED did discuss the case with neurology -recommended starting on aspirin 325mg for now given she is clinically without neurological symptoms -neuro consulted, will evaluate in the morning -consider vascular consult #Depression -cont. sertraline DVT ppx: ASA, SCDs, ambulation FEN/GI: regular Code Status: full Dispo: med tele (2) Carotid artery dissection: History of Present Illness Chief Complaint: headache Primary Care Provider: Rojelio Lara 32 yo female with PMHx of depression presents with headache. This past Sunday patient had sudden onset left-sided headache which has been persistent since. The headache is widespread from her left face all the way to the posterior aspect. He does tend to feel a sharp pain especially in the superior posterior aspect of the left head. Sunday she also did feel pulsations in her head that coincided with her heartbeat. At times she will have moments of left-sided blurry vision but this is infrequent. Denies fevers, chills, fatigue, chest pain, shortness of breath, abdominal pain, dysuria, diarrhea, nausea, vomiting, extremity numbness/tingling/weakness. The headache has not been relieved with Tylenol. She does note that over the past 6 weeks she has been going to the chiropractor who has been manipulating her entire spine and hips. She had a session 2 days prior to the onset of the headache and another session on Sunday which was the day she started experiencing these pulsations. Yesterday she did go to her PCP and was prescribed amlodipine due to elevated blood pressures however this did not help with her symptoms. Allergies Allergy/AdvReac Type Severity Reaction Status Date / Time cephalexin Allergy Unknown hives Verified 02/20/23 11:20 sulfamethoxazole Allergy Unknown hives Verified 02/20/23 11:20 trimethoprim Allergy Unknown hives Verified 02/20/23 11:20 Home Medications Medication Instructions Recorded Confirmed Type sertraline 50 mg tablet 50 mg PO DAILY 04/27/23 04/27/23 History Past Med/Surg History Medical History (Updated 04/27/23 @ 03:16 by Williams Villalpando DO) Encounter for pre-operative examination Encounter for care and examination after delivery Encounter for anatomic survey Encounter for supervision of normal in multigravida, antepartum Vertigo Abnormal CT of brain Ureteral calculus, left Hemangioma [id number] right hepatic lob hyperechoic nodule, possible hemangioma on 12/14/22 abdominal u/s History of COVID-19 hx - no hosp; resolved Cholelithiasis Kidney stones able to pass Surgical History (Updated 02/20/23 @ 12:07 by Juan Diego Chaney DO, FACS) Hx laparoscopic cholecystectomy (02/07/23) Robotic Assisted Laparoscopic Cholecystectomy (Not Applicable) - Juan Diego Chaney DO, FACS History of surgical removal of pilonidal cyst S/P wisdom tooth extraction Hx of appendectomy Family History Mother Ovarian cancer Father Heart disease Social History Smoking Status: Former smoker Tobacco Type: Cigarettes Second Hand Exposure: No; Do You Dip or Chew Tobacco: No; Hx Alcohol Use: No Hx Substance Use: No Preferred Language: [place] Communication Ability: Effective Horse Wrangler Required: No Beliefs That Will Affect Care: None marital status: Single marital status details: FOB: Emerson (24) [phone] Current Living Situation: Spouse Current Living Situation Comment: Fiancee and2 children current occupational status: employed current occupation: [employer] for [employer] How many Children do You have: 2 Feels Safe at Home: Yes during the past year weight has: increased > 10 lbs Assistive Devices: None Review of Systems Review of Systems: All systems reviewed & are unremarkable except as noted in HPI & below Physical Exam Physical Exam: Constitutional: in no acute distress, pleasant and normal affect, intact memory. AOx3. Vitals as above. HEENT: No scleral injection or discharge. Moist mucous membranes. Neck: Supple without lymphadenopathy or thyromegaly. Trachea midline. Lungs: Clear to auscultation bilaterally with good effort. No wheezes/rales/rhonchi. Cardiac: Regular rate and rhythm. No murmurs. No lower extremity edema. 2+ distal peripheral pulses. Abdomen: Bowel sounds present. Soft, nontender, and nondistended.No guarding. No hepatosplenomegaly. MSK: No cyanosis or clubbing.c Extremities motor strength 5/5. Skin: No rashes, warm, dry. Neurologic: Grossly intact cranial nerves and 2+ patellar tendon reflexes bilaterally. PERRL. Mild exacerbation of headache with upward gaze otherwise EOMI. Results & Data Results & Data Vital Signs (Past 12 Hours) Vital Signs Temp Pulse Pulse Resp BP BP Pulse Ox 04/27/23 02:26 102 H 17 99 04/27/23 02:26 152/114 H 04/27/23 02:20 108 H 24 99 04/27/23 02:10 86 23 99 04/27/23 02:00 87 21 98 04/27/23 02:00 144/100 H 04/27/23 01:54 80 17 98 04/27/23 01:54 81 17 147/98 H 98 04/27/23 01:51 84 18 97 04/27/23 01:40 80 21 98 04/27/23 01:30 147/98 H 04/27/23 01:30 86 27 H 99 04/27/23 01:20 79 21 97 04/27/23 01:10 90 23 96 04/27/23 01:00 141/96 H 04/27/23 01:00 78 16 98 04/27/23 00:50 90 19 97 04/27/23 00:40 90 17 97 04/27/23 00:36 150/97 H 04/27/23 00:36 94 H 18 99 04/27/23 00:20 101 H 23 98 04/27/23 00:10 98 H 20 98 04/27/23 00:00 89 21 97 04/26/23 23:50 98 H 18 97 04/26/23 23:49 155/114 H 04/26/23 23:49 101 H 04/26/23 23:00 36.6 C 104 H 18 187/123 H 96 O2 Del Method 04/27/23 02:26 04/27/23 02:26 04/27/23 02:20 04/27/23 02:10 04/27/23 02:00 04/27/23 02:00 04/27/23 01:54 Room Air 04/27/23 01:54 Room Air 04/27/23 01:51 04/27/23 01:40 04/27/23 01:30 04/27/23 01:30 04/27/23 01:20 04/27/23 01:10 04/27/23 01:00 04/27/23 01:00 04/27/23 00:50 04/27/23 00:40 04/27/23 00:36 04/27/23 00:36 04/27/23 00:20 04/27/23 00:10 04/27/23 00:00 04/26/23 23:50 04/26/23 23:49 04/26/23 23:49 04/26/23 23:00 Room Air Laboratory Results Laboratory Results WBC 13.50 K/ul (4.8-10.8) H 04/26/23 23:17 RBC 5.10 M/uL (4.20-5.40) 04/26/23 23:17 Hgb 14.5 g/dl (12.0-16.0) 04/26/23 23:17 Hct 42.6 % (37.0-47.0) 04/26/23 23:17 MCV 83.5 fL (80.0-100.0) 04/26/23 23:17 MCH 28.4 pg (25.0-34.0) 04/26/23 23:17 MCHC 34.0 g/dL (32.0-36.0) 04/26/23 23:17 RDW Std Deviation 37.1 fL (36.4-46.3) 04/26/23 23:17 RDW Coeff of Pili 12.2 % (11.5-14.5) 04/26/23 23:17 Plt Count 397 K/uL (130-400) 04/26/23 23:17 MPV 9.6 fL (9.4-12.4) 04/26/23 23:17 Immature Gran % (Auto) 0.3 % 04/26/23 23:17 Neut % (Auto) 59.9 % 04/26/23 23:17 Lymph % (Auto) 28.6 % 04/26/23 23:17 [place] % (Auto) 7.3 % 04/26/23 23:17 Eos % (Auto) 3.3 % 04/26/23 23:17 Baso % (Auto) 0.6 % 04/26/23 23:17 Neut # (Auto) 8.09 K/uL (1.40-6.50) H 04/26/23 23:17 Lymph # (Auto) 3.86 K/uL (1.20-3.40) H 04/26/23 23:17 [place] # (Auto) 0.98 K/uL (0.11-0.59) H 04/26/23 23:17 Eos # (Auto) 0.45 K/uL (0.00-0.50) 04/26/23 23:17 Baso # (Auto) 0.08 K/uL (0.00-0.20) 04/26/23 23:17 Immature Gran # (Auto) 0.04 K/uL (0.01-0.20) 04/26/23 23:17 PT 10.3 Seconds (9.0-12.0) 04/26/23 23:17 INR 0.9 (0.9-1.1) 04/26/23 23:17 APTT 26 Seconds (21-31) 04/26/23 23:17 PTT Ratio 0.9 04/26/23 23:17 Sodium 138 mmol/L (136-145) 04/26/23 23:17 Potassium 4.0 mmol/L (3.5-5.1) 04/26/23 23:17 Chloride 107 mmol/L (98-107) 04/26/23 23:17 Carbon Dioxide 23 mmol/L (21-32) 04/26/23 23:17 Anion Gap 8 (3-11) 04/26/23 23:17 BUN 11 mg/dl (6-23) 04/26/23 23:17 Creatinine 0.59 mg/dl (0.6-1.2) L 04/26/23 23:17 Est Cr Clr Drug Dosing 148.5 ml/min 04/26/23 23:17 Est GFR ( Amer) 140.6 ml/min 04/26/23 23:17 Est GFR (Non-Af Amer) 121.3 ml/min 04/26/23 23:17 BUN/Creatinine Ratio 18.6 (10-20) 04/26/23 23:17 Glucose 118 mg/dl (70-99(Fasting)) H 04/26/23 23:17 Calcium 9.8 mg/dl (8.6-10.3) 04/26/23 23:17 Total Bilirubin 0.2 mg/dl (0.2-1.0) 04/26/23 23:17 AST 12 U/L (13-39) L 04/26/23 23:17 ALT 12 U/L (7-52) 04/26/23 23:17 Alkaline Phosphatase 69 U/L (34-104) 04/26/23 23:17 Total Protein 7.8 gm/dl (6.0-8.3) 04/26/23 23:17 Albumin 4.5 gm/dl (3.4-5.0) 04/26/23 23:17 Globulin 3.3 gm/dl (2.5-4.0) 04/26/23 23:17 Albumin/Globulin Ratio 1.4 (0.9-2) 04/26/23 23:17 HCG, Qual Negative (Negative) 04/26/23 23:17 Urine Color Yellow 04/26/23 23:20 Urine Appearance Clear (Clear) 04/26/23 23:20 Urine pH 7.0 (4.5-7.5) 04/26/23 23:20 Ur Specific [place] 1.020 (1.000-1.030) 04/26/23 23:20 Urine Protein Negative (Negative) 04/26/23 23:20 Urine Glucose (UA) Negative (Negative) 04/26/23 23:20 Urine Ketones Negative (Negative) 04/26/23 23:20 Urine Blood Negative (Negative) 04/26/23 23:20 Urine Nitrite Negative (Negative) 04/26/23 23:20 Urine Bilirubin Negative (Negative) 04/26/23 23:20 Urine Urobilinogen Negative (Negative) 04/26/23 23:20 Ur Leukocyte Esterase Negative (Negative) 04/26/23 23:20 Anaplasma Smear See Comment 04/26/23 23:17 Lyme Disease IgG Ab Negative (Negative) 04/26/23 23:17 Lyme Disease IgM Ab Negative (Negative) 04/26/23 23:[address] 04/26/23 23:42 Exam(s): CT HEAD Without Contrast EXAM: CT Head Without Intravenous Contrast CLINICAL HISTORY: Reason for exam: acute headache. TECHNIQUE: Axial computed tomography images of the head/brain without intravenous contrast. CTDI is 36.67 mGy and DLP is 1147.09 mGy-cm. Automated exposure control was utilized for the study. A dose lowering technique was utilized adhering to the principles of ALARA. COMPARISON: 10/19/2013. FINDINGS: Brain: Unremarkable. No hemorrhage. No significant white matter disease. No edema. Ventricles: Unremarkable. No ventriculomegaly. Bones/joints: Unremarkable. No acute fracture. Soft tissues: Unremarkable. Sinuses: Unremarkable as visualized. No acute sinusitis. Mastoid air cells: Unremarkable as visualized. No mastoid effusion. IMPRESSION: Normal CT brain. Electronically signed by: Nicolasa Anne MD 04/27/23 01:16 AM Head CTA 04/26/23 23:42 Exam(s): CTA HEAD With Contrast IV Amt: 118 cc opti 320 EXAM: CT Angiography Head With Intravenous Contrast CLINICAL HISTORY: Reason for exam: acute headache, recent chiropract manipulation. TECHNIQUE: Axial computed tomographic angiography images of the head with intravenous contrast. CTDI is 36.67 mGy and DLP is 1147.09 mGy-cm. Automated exposure control was utilized for the study. A dose lowering technique was utilized adhering to the principles of ALARA. MIP reconstructed images were created and reviewed. CONTRAST: Patient received 118 cc opti 320 of IV contrast COMPARISON: None. FINDINGS: Right internal carotid artery: Minimal calcified atherosclerotic plaque throughout the cavernous portion of the right internal carotid artery with no stenosis. No aneurysm. Right anterior cerebral artery: Unremarkable. No occlusion or significant stenosis. No aneurysm. Right middle cerebral artery: Unremarkable. No occlusion or significant stenosis. No aneurysm. Right posterior cerebral artery: Unremarkable. No occlusion or significant stenosis. No aneurysm. Right vertebral artery: Unremarkable as visualized. Left internal carotid artery: No acute findings. Intracranial segment is patent with no significant stenosis. No aneurysm. Left anterior cerebral artery: Unremarkable. No occlusion or significant stenosis. No aneurysm. Left middle cerebral artery: Unremarkable. No occlusion or significant stenosis. No aneurysm. Left posterior cerebral artery: Unremarkable. No occlusion or significant stenosis. No aneurysm. Left vertebral artery: Unremarkable as visualized. Basilar artery: Unremarkable. No occlusion or significant stenosis. No aneurysm. IMPRESSION: Negative CT angiogram of the brain with no focal stenosis, occlusion or aneurysm involving the [place] of [place]. Electronically signed by: Nicolasa Anne MD 04/27/23 01:29 AM Neck CTA 04/26/23 23:42 CR Exam(s): CTA NECK With Contrast IV Amt: 118 cc opti 320 EXAM: CT Angiography Neck With Intravenous Contrast CLINICAL HISTORY: Reason for exam: acute headache, recent chiropract manipulation. TECHNIQUE: Routine carotid CT angiography protocol was performed with intravenous contrast. NASCET criteria using the distal ICAs for comparison were used for evaluation of stenoses. CTDI is 36.67 mGy and DLP is 1147.09 mGy-cm. Automated exposure control was utilized for the study. A dose lowering technique was utilized adhering to the principles of ALARA. MIP reconstructed images were created and reviewed. CONTRAST: Patient received 118 cc opti 320 of IV contrast COMPARISON: None. FINDINGS: VASCULATURE: Right common carotid artery: Unremarkable. No occlusion or significant stenosis. No dissection. Right internal carotid artery: Unremarkable. Extracranial segment is patent with no occlusion or significant stenosis. No dissection. Right external carotid artery: Unremarkable. No occlusion. Right vertebral artery: Unremarkable. No occlusion or significant stenosis. No dissection. Left common carotid artery: Unremarkable. No occlusion or significant stenosis. No dissection. Left internal carotid artery: There is significant distal aspect of the left carotid artery with evidence of intimal flap consistent with dissection. This extends into the petrous portion of the left internal carotid artery. Extracranial segment is patent with no occlusion or significant stenosis. Left external carotid artery: Unremarkable. No occlusion. Left vertebral artery: Unremarkable. No occlusion or significant stenosis. No dissection. NECK: Bones/joints: Unremarkable. No acute fracture. Soft tissues: Unremarkable. Lung apices: Clear. CAROTID STENOSIS REFERENCE USING NASCET CRITERIA: % ICA stenosis = (1 - narrowest ICA diameter/diameter of distal cervical ICA) x 100. Mild - <50% stenosis. Moderate - 50-69% stenosis. Severe - 70-94% stenosis. Near occlusion - 95-99% stenosis. Occluded - 100% stenosis. IMPRESSION: 1. 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 2. Remainder of the CT angiogram of the neck is unremarkable. Communications: Call Doctor Other Electronically signed by: Nicolasa Anne MD 04/27/23 01:31 AM Code Status & VTE Plan VTE Prophylaxis Plan VTE Prophylaxis will be ordered: Yes Supervising Physician Co-Signing Physician Notes Attending addendum: I have physically seen this patient, have supervised the medical residents activities, and agree with the H&P unless as otherwise noted. Assessment and Plan: Distal left ICA dissection/headache- CT head negative for acute findings CTA head negative CTA neck shows dissection involving the distal aspect of the LICA with diffuse narrowing and intimal flap visualized extending into the petrous portion of the LICA MRI of brain shows no stroke, incidental finding of trace calcification within the right posterior parietal lobe measuring 7.2 mm, stable in the interval and most compatible with a venous angioma/DVA Neurology recommending aspirin 325 mg, and will assess patient in a.m. Uncontrolled hypertension- Admit to monitored bed Give Lopressor 2.5 mg IV now for blood pressure 140/114 Start carvedilol 3.125 mg p.o. twice daily Target blood pressure 120/80 Resident Activity Tracking Resident Involvement: Resident Care Provided Care Provided: Adult Hospital Medicine
[2023-04-27] MEDS ORDERED: POLYETHYLENE (MIRALAX) 17 GM PACK PO PRN (03:22)
[2023-04-27] MEDS ORDERED: ACETAMINOPHEN 325 MG TAB PO PRN (03:22)
[2023-04-27] MEDS ORDERED: ONDANSETRON 4 MG OD TAB PO PRN (03:22)
--- NOTE | 2023-04-27 03:55 | Magnetic Resonance Report ---
Exam(s): MRI HEAD Without Contrast EXAM: MR Head Without Intravenous Contrast CLINICAL HISTORY: Reason for exam: left internal carotid artery dissection on CT. TECHNIQUE: Magnetic resonance images of the head/brain without intravenous contrast in multiple planes. COMPARISON: MRI brain dated 10/20/2013. CT brain dated 04/27/2023. CT brain dated 10/19/2013. FINDINGS: Brain: Trace focal area of susceptibility artifact identified within the deep white matter of right posterior parietal lobe, just adjacent to the right occipital lobe most compatible with venous angioma/DVA measuring 7.2 mm. No hemorrhage. No acute infarct. Ventricles: Unremarkable. No ventriculomegaly. Bones/joints: Unremarkable. No acute fracture. Sinuses: Unremarkable as visualized. No acute sinusitis. Mastoid air cells: Unremarkable as visualized. No mastoid effusion. Orbits: Unremarkable as visualized. IMPRESSION: 1. Trace calcification within the RIGHT posterior parietal lobe measuring 7.2 mm, stable in the interval and most compatible with venous angioma/DVA. 2. No acute stroke or intracranial hemorrhage. 3. No acute intracranial process, stable study in the interval. Electronically signed by: Nicolasa Anne MD 04/27/23 03:54 AM
[2023-04-27] MEDS ORDERED: METOPROLOL TARTRATE 1 MG/ML VIAL IV ONE (06:16)
[2023-04-27] MEDS ORDERED: METOPROLOL TARTRATE 1 MG/ML VIAL IV STA (06:17)
--- NOTE | 2023-04-27 06:25 | Billing Data ---
Date of Service April 27, 2023 Coding Level of Care Code 81064 INT INP/OBS CARE
[2023-04-27] MEDS ORDERED: carvediloL 3.125 MG TAB PO SCH (07:00)
[2023-04-27] MEDS ORDERED: SERTRALINE HCL 50 MG TABLET PO SCH (09:00)
--- NOTE | 2023-04-27 10:14 | Neurology Consultation ---
Date of Consultation April 27, 2023 Assessment & Plan (1) Carotid artery dissection: (2) Headache: (3) Hypertension: Plan This patient has had new onset of severe left-sided headache secondary to a distal left internal carotid artery dissection. Etiology of the dissection is likely due to the chiropractic manipulation with the addition of hypertension. She does not have a history of hypertension otherwise. Currently she is asymptomatic with no headache and no focal findings, meningeal signs, or encephalopathy. MRI of the brain shows no new stroke. She has an incidental right parietal venous angioma, unchanged from 2014. Recommendations: 1. Control blood pressure as you are doing, aiming for mean arterial pressure of 95-100 2. Continue with 81 mg aspirin tablet daily. Given her dissection, with no focal findings or stroke, 81 mg aspirin tablet daily is the drug of choice. There is no advantage to an anticoagulant in this situation. 3. Avoid heavy lifting, straining for now 4. I can follow-up in 2 to 3 weeks as an outpatient with PA. We will likely repeat CT angiography sometime later this winter. 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 Overall, I spent a total of 75 minutes with this case including review of records, review of MRI films, direct evaluation the patient at bedside, and discussion of the case with the patient, mother, and RN at bedside and Dr. Bermudez including differential diagnosis and treatment options. History of Present Illness Reason for Consultation: Patient is a 32-year-old who was asked to see the request of Dr. Bueno for neurologic consultation regarding headache and carotid dissection Requesting Physician: Dr. Bueno Attending Physician: Gary Bermudez, History of Present Illness This patient has a history of rare, intermittent migraine headaches (occurring approximately once a year) since her mid teen years. She will get an occipital pain with photophobia and sonophobia. They could last up to a couple of hours and any [id number] medication and some sleep would help. Her last such event was probably 2 months ago. She has no history of hypertension, diabetes, dyslipidemia, stroke, or heart disease. She was taking sertraline for couple of months in the spring 2022 because of anxiety and depression from the passing of her father, but she has not been on this medicine for 8 months. Otherwise she is on no other regular medication. 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 The patient has been seeing a chiropractor for 6 weeks going once or twice a week. She has been getting manipulation on her entire spine and hips. On April 20 she had a manipulation of her cervical spine. On April 22 she woke up with a significant left-sided burning pain extending from the face on the left across left side of the head to the occipital and down the left side of the neck. She had no vision issues, ptosis, confusion, dizziness, weakness, or numbness. She did feel a sharp pain just under her left ear. She has had this headache continuously including sharp shooting pains ever since. It did not respond to Tylenol. She saw her primary care physician April 26, who noted high blood pressure. She took a dose of amlodipine 5 mg and this did not help her headache. Because the pain was worse, she came to the emergency room last evening. She arrived to the emergency room April 26 at 2300, with a temperature of 36.6, pulse 104, respiratory rate 18, blood pressure 187/23, and O2 saturation 96%. Her neurologic examination was unremarkable and nonfocal. She was given a headache "cocktail" consisting of Reglan, Benadryl, and IV Tylenol. This morning her headache is completely resolved and she has no head pain CBC showed a white count of 13.5 but was otherwise unremarkable. CHEM profile, Lyme antibody titers, and urinalysis were normal. CT scan of the head was unremarkable. CT angiography of the head showed no vascular issues. CT angiography of the neck showed distal left internal carotid artery dissection without obstruction. MRI of the brain showed no evidence of stroke and there was a venous angioma noted in the right posterior parietal head region unchanged from her previous MRI of September 2013. I reviewed these films. Currently she has no headache or vision issues. She has no weakness or numbness and no dizziness. Allergies Allergy/AdvReac Type Severity Reaction Status Date / Time cephalexin Allergy Unknown hives Verified 02/20/23 11:20 sulfamethoxazole Allergy Unknown hives Verified 02/20/23 11:20 trimethoprim Allergy Unknown hives Verified 02/20/23 11:20 Home Medications Medication Instructions Recorded Confirmed Type sertraline 50 mg tablet 50 mg PO DAILY 04/27/23 04/27/23 History Patient History Medical History Encounter for pre-operative examination Encounter for care and examination after delivery Encounter for anatomic survey Encounter for supervision of normal in multigravida, antepartum Vertigo Abnormal CT of brain Ureteral calculus, left Hemangioma [id number] right hepatic lob hyperechoic nodule, possible hemangioma on 12/14/22 abdominal u/s History of COVID-19 hx - no hosp; resolved Cholelithiasis Kidney stones able to pass Surgical History Hx laparoscopic cholecystectomy (02/07/23) Robotic Assisted Laparoscopic Cholecystectomy (Not Applicable) - Juan Diego Chaney, DO, FACS History of surgical removal of pilonidal cyst S/P wisdom tooth extraction Hx of appendectomy Family History (Updated 04/27/23 @ 10:07 by Alex Novak MD) Mother Ovarian cancer Father , age 67 of an MD Heart disease Myocardial infarction Social History (Updated 04/27/23 @ 10:08 by Alex Novak MD) Smoking Status: Former smoker Tobacco Type: Cigarettes Age Started Using Tobacco: 16; Age Quit Using Tobacco: 30; Cigarettes Per Day: She was a variable smoker over this time smoking on and off.; Second Hand Exposure: No; Do You Dip or Chew Tobacco: No; Hx Alcohol Use: No Hx Substance Use: No Preferred Language: Swedish Communication Ability: Effective Tobacco Hanger Required: No Beliefs That Will Affect Care: None marital status: Single marital status details: FOB: Emerson (24) [phone] Current Living Situation: Spouse Current Living Situation Comment: Fiancee and2 children current occupational status: employed current occupation: [employer] for [employer] In [employer] How many Children do You have: 2 Feels Safe at Home: Yes during the past year weight has: increased > 10 lbs Assistive Devices: None Review of Systems Constitutional: no fever, no fatigue and no weakness Eyes: no diplopia, no eye pain and no worsening vision Ear, Nose, Mouth, Throat: no ear pain, no tinnitus, no hearing loss, no dizziness, no snoring, no hoarseness and no dysphagia Respiratory: no cough and no dyspnea Cardiovascular: no chest pain, no palpitations and no lightheadedness Gastrointestinal: no abdominal pain, no nausea and no vomiting Genitourinary: no dysuria, no urinary frequency and no urinary incontinence Musculoskeletal: no back pain, no neck pain, no radicular pain, no joint pain and no myalgia Integumentary: no rash and no lesions Neurologic: no gait abnormality, no localized weakness, no generalized weakness, no tingling, no numbness, no tremor(s), no abnormal movements, no headache(s), no abnormal speech, no confusion and no memory loss Psychiatric: no depression, no irritability, no anxiety, no difficulty concentrating, no confusion and no hallucinations Endocrine: no fatigue and no flushing Hematologic / Lymphatic: no easy bleeding and no easy bruising Allergy / Immunological: no urticaria and no problem reported Exam (Neuro) Physical Exam: The patient is right-handed. The patient is awake, alert, and attentive. Speech is normal without any aphasia or dysarthria. Mentation and thought processes are intact, with full orientation and normal fund of knowledge. Mood and affect are normal and appropriate. Appearance and grooming are normal. Short and long-term memory are intact. The discs are sharp with positive venous pulsations bilaterally. There are no exudates, hemorrhages, or blood vessel changes seen. Pupils are 4 mm bilaterally and reactive to light. Extraocular eye muscles are intact without nystagmus. Visual acuity and visual romo seem normal grossly to confrontation. She has no ptosis or myosis. There are no deficits to sensation in the face in all 3 distributions of the fifth cranial nerve bilaterally. Corneal reflexes are positive bilaterally. Facial strength and symmetry was normal bilaterally. Hearing seems intact grossly to voice and finger rub bilaterally. Palate moves well without asymmetry. There is normal sternocleidomastoid and trapezius strength bilaterally. Tongue is midline with good strength bilaterally. Neck has a full range of motion without discomfort. There are no cervical bruits bilaterally. There are no cranial or ocular bruits. Heart is without murmur. There is a regular rhythm and rate. Cervical, thoracic, and lumbar spine are nontender to palpation. Gait is narrow based, with good arm swing, turns, and stance. Balance is normal eyes open or closed. With outstretched arms there is no drift. There are no resting, postural, or action tremors. There is no ataxia with finger to nose testing. There is good facility in the hands. No other abnormal involuntary movements are noted. Motor strength is 5/5 diffusely in the arms bilaterally including deltoids, biceps, triceps, brachioradialis, wrist flexors and extensors, rhic systems safety engineer, and intrinsic hand muscles. Motor strength is 5/5 diffusely in the legs bilaterally including hip flexors, quadriceps, hamstrings, gastrocnemius, tibialis anterior, tibialis posterior, and Peroneii muscles bilaterally. Toe extensors are normal and there is good bulk in the extensor digitorum brevis muscles bilaterally. The limbs have good tone without rigidity or spasticity. There is no atrophy noted in the muscles. Muscle bulk is normal, there is no tenderness to palpation, no myotonia to percussion, and no fasciculations seen. Sensory examination is intact to touch and pin throughout all 4 limbs diffusely. Reflexes are 2/4 in the biceps, triceps, brachioradialis, quadriceps, and Achilles tendons bilaterally. Toes are downgoing with plantar stimulation bilaterally. Peripheral pulses are present and of normal quality distally in all 4 limbs. There is no peripheral edema noted in the limbs. Results & Data Vital Signs (Past 12 Hours) Vital Signs Temp Pulse Pulse Resp BP BP Pulse Ox 04/27/23 07:36 86 04/27/23 07:24 86 127/93 04/27/23 06:55 88 17 157/92 H 97 04/27/23 06:22 99 H 140/106 H 04/27/23 04:40 86 18 97 04/27/23 04:30 157/106 H 04/27/23 04:30 94 H 20 97 04/27/23 04:20 96 H 24 97 04/27/23 04:14 93 H 17 98 04/27/23 04:14 146/104 H 04/27/23 04:13 102 H 16 98 04/27/23 04:07 90 18 157/106 H 98 04/27/23 04:06 169/124 H 04/27/23 04:06 98 H 19 98 04/27/23 04:00 96 04/27/23 03:52 04/27/23 03:50 97 04/27/23 03:40 96 04/27/23 03:30 97 04/27/23 03:26 96 04/27/23 03:22 04/27/23 02:50 97 H 22 97 04/27/23 02:40 100 H 21 99 04/27/23 02:30 147/117 H 04/27/23 02:30 110 H 26 H 99 04/27/23 02:26 102 H 17 99 04/27/23 02:26 152/114 H 04/27/23 02:20 108 H 24 99 04/27/23 02:10 86 23 99 04/27/23 02:00 87 21 98 04/27/23 02:00 144/100 H 04/27/23 01:54 80 17 98 04/27/23 01:54 81 17 147/98 H 98 04/27/23 01:51 84 18 97 04/27/23 01:40 80 21 98 04/27/23 01:30 147/98 H 04/27/23 01:30 86 27 H 99 04/27/23 01:20 79 21 97 04/27/23 01:10 90 23 96 04/27/23 01:00 141/96 H 04/27/23 01:00 78 16 98 04/27/23 00:50 90 19 97 04/27/23 00:40 90 17 97 04/27/23 00:36 150/97 H 04/27/23 00:36 94 H 18 99 04/27/23 00:20 101 H 23 98 04/27/23 00:10 98 H 20 98 04/27/23 00:00 89 21 97 04/26/23 23:50 98 H 18 97 04/26/23 23:49 155/114 H 04/26/23 23:49 101 H 04/26/23 23:00 36.6 C 104 H 18 187/123 H 96 Pulse Ox O2 Del Method O2 Del Method 04/27/23 07:36 04/27/23 07:24 04/27/23 06:55 04/27/23 06:22 04/27/23 04:40 04/27/23 04:30 04/27/23 04:30 04/27/23 04:20 04/27/23 04:14 04/27/23 04:14 04/27/23 04:13 04/27/23 04:07 Room Air 04/27/23 04:06 04/27/23 04:06 04/27/23 04:00 04/27/23 03:52 Room Air 04/27/23 03:50 04/27/23 03:40 04/27/23 03:30 04/27/23 03:26 04/27/23 03:22 98 Room Air 04/27/23 02:50 04/27/23 02:40 04/27/23 02:30 04/27/23 02:30 04/27/23 02:26 04/27/23 02:26 04/27/23 02:20 04/27/23 02:10 04/27/23 02:00 04/27/23 02:00 04/27/23 01:54 Room Air 04/27/23 01:54 Room Air 04/27/23 01:51 04/27/23 01:40 04/27/23 01:30 04/27/23 01:30 04/27/23 01:20 04/27/23 01:10 04/27/23 01:00 04/27/23 01:00 04/27/23 00:50 04/27/23 00:40 04/27/23 00:36 04/27/23 00:36 04/27/23 00:20 04/27/23 00:10 04/27/23 00:00 04/26/23 23:50 04/26/23 23:49 04/26/23 23:49 04/26/23 23:00 Room Air PG Care Time/CCT Total # of Minutes Spent Total Time Spent with Patient: Total time spent is greater than 50% in coordination of care (as documented) at patient's floor/unit and/or counseling patient: Coding Level of Care Code 69497 IN/OBS CONSULT LVL 4,60M Diagnoses Carotid artery dissection I77.71 Headache R51 Hypertension I10 Time Spent (min) 75
--- NOTE | 2023-04-27 11:32 | Electrocardiogram Report ---
Test Reason : Blood Pressure : / mmHG Vent. Rate : 102 BPM Atrial Rate : 102 BPM P-R Int : 122 ms QRS Dur : 076 ms QT Int : 326 ms P-R-T Axes : 055 039 017 degrees QTc Int : 424 ms Sinus tachycardia Otherwise normal ECG When compared with ECG of 06-JUL-2022 15:57, No significant change was found Confirmed by Cuba Gilliam ([id number]) on 04/27/2023 11:32:46 AM Referred By: REFERRED SELF Confirmed By:Cuba Gilliam
--- NOTE | 2023-04-27 14:03 | Discharge Summary ---
Date of Service April 27, 2023 Admission HPI Per Admitting Provider 32 yo female with PMHx of depression presents with headache. This past Sunday patient had sudden onset left-sided headache which has been persistent since. The headache is widespread from her left face all the way to the posterior aspect. He does tend to feel a sharp pain especially in the superior posterior aspect of the left head. Sunday she also did feel pulsations in her head that coincided with her heartbeat. At times she will have moments of left-sided blurry vision but this is infrequent. Denies fevers, chills, fatigue, chest pain, shortness of breath, abdominal pain, dysuria, diarrhea, nausea, vomiting, extremity numbness/tingling/weakness. The headache has not been relieved with Tylenol. She does note that over the past 6 weeks she has been going to the chiropractor who has been manipulating her entire spine and hips. She had a session 2 days prior to the onset of the headache and another session on Sunday which was the day she started experiencing these pulsations. Yesterday she did go to her PCP and was prescribed amlodipine due to elevated blood pressures however this did not help with her symptoms. Admission Exam Per Admitting Provider Constitutional: in no acute distress, pleasant and normal affect, intact memory. AOx3. Vitals as above. HEENT: No scleral injection or discharge. Moist mucous membranes. Neck: Supple without lymphadenopathy or thyromegaly. Trachea midline. Lungs: Clear to auscultation bilaterally with good effort. No wheezes/rales/rhonchi. Cardiac: Regular rate and rhythm. No murmurs. No lower extremity edema. 2+ distal peripheral pulses. Abdomen: Bowel sounds present. Soft, nontender, and nondistended.No guarding. No hepatosplenomegaly. MSK: No cyanosis or clubbing.c Extremities motor strength 5/5. Skin: No rashes, warm, dry. Neurologic: Grossly intact cranial nerves and 2+ patellar tendon reflexes bilaterally. PERRL. Mild exacerbation of headache with upward gaze otherwise EOMI. Principal Diagnosis Left internal carotid artery dissection Discharge Exam Constitutional WD/WN, vitals as above Eyes PERRL; no conjunctival abnormality ENMT Ears: no external ear abnormality Nose: no external nose abnormality Moist mucous membranes Respiratory normal respiratory effort, lungs clear to auscultation Cardiovascular RRR, no murmur, no edema Skin no rashes, warm and dry Psychiatric A+Ox3, euthymic affect Discharge Data Allergies Allergy/AdvReac Type Severity Reaction Status Date / Time cephalexin Allergy Unknown hives Verified 02/20/23 11:20 sulfamethoxazole Allergy Unknown hives Verified 02/20/23 11:20 trimethoprim Allergy Unknown hives Verified 02/20/23 11:20 Consultations 04/27/23 03:11 Consult Neurology Routine 04/27/23 05:19 ED Decision to Admit Stat Ordered Studies 04/26/23 23:42 CT angio head w con Stat CT angio neck with con Stat CT head/brain wo con Stat 04/27/23 02:41 MR brain wo con Stat Head CT 04/26/23 23:42 Exam(s): CT HEAD Without Contrast EXAM: CT Head Without Intravenous Contrast CLINICAL HISTORY: Reason for exam: acute headache. TECHNIQUE: Axial computed tomography images of the head/brain without intravenous contrast. CTDI is 36.67 mGy and DLP is 1147.09 mGy-cm. Automated exposure control was utilized for the study. A dose lowering technique was utilized adhering to the principles of ALARA. COMPARISON: 10/19/2013. FINDINGS: Brain: Unremarkable. No hemorrhage. No significant white matter disease. No edema. Ventricles: Unremarkable. No ventriculomegaly. Bones/joints: Unremarkable. No acute fracture. Soft tissues: Unremarkable. Sinuses: Unremarkable as visualized. No acute sinusitis. Mastoid air cells: Unremarkable as visualized. No mastoid effusion. IMPRESSION: Normal CT brain. Electronically signed by: Nicolasa Anne MD 04/27/23 01:16 AM Head CTA 04/26/23 23:42 Exam(s): CTA HEAD With Contrast IV Amt: 118 cc opti 320 EXAM: CT Angiography Head With Intravenous Contrast CLINICAL HISTORY: Reason for exam: acute headache, recent chiropract manipulation. TECHNIQUE: Axial computed tomographic angiography images of the head with intravenous contrast. CTDI is 36.67 mGy and DLP is 1147.09 mGy-cm. Automated exposure control was utilized for the study. A dose lowering technique was utilized adhering to the principles of ALARA. MIP reconstructed images were created and reviewed. CONTRAST: Patient received 118 cc opti 320 of IV contrast COMPARISON: None. FINDINGS: Right internal carotid artery: Minimal calcified atherosclerotic plaque throughout the cavernous portion of the right internal carotid artery with no stenosis. No aneurysm. Right anterior cerebral artery: Unremarkable. No occlusion or significant stenosis. No aneurysm. Right middle cerebral artery: Unremarkable. No occlusion or significant stenosis. No aneurysm. Right posterior cerebral artery: Unremarkable. No occlusion or significant stenosis. No aneurysm. Right vertebral artery: Unremarkable as visualized. Left internal carotid artery: No acute findings. Intracranial segment is patent with no significant stenosis. No aneurysm. Left anterior cerebral artery: Unremarkable. No occlusion or significant stenosis. No aneurysm. Left middle cerebral artery: Unremarkable. No occlusion or significant stenosis. No aneurysm. Left posterior cerebral artery: Unremarkable. No occlusion or significant stenosis. No aneurysm. Left vertebral artery: Unremarkable as visualized. Basilar artery: Unremarkable. No occlusion or significant stenosis. No aneurysm. IMPRESSION: Negative CT angiogram of the brain with no focal stenosis, occlusion or aneurysm involving the [place] of [place]. Electronically signed by: Nicolasa Anne MD 04/27/23 01:29 AM Neck CTA 04/26/23 23:42 CR Exam(s): CTA NECK With Contrast IV Amt: 118 cc opti 320 EXAM: CT Angiography Neck With Intravenous Contrast CLINICAL HISTORY: Reason for exam: acute headache, recent chiropract manipulation. TECHNIQUE: Routine carotid CT angiography protocol was performed with intravenous contrast. NASCET criteria using the distal ICAs for comparison were used for evaluation of stenoses. CTDI is 36.67 mGy and DLP is 1147.09 mGy-cm. Automated exposure control was utilized for the study. A dose lowering technique was utilized adhering to the principles of ALARA. MIP reconstructed images were created and reviewed. CONTRAST: Patient received 118 cc opti 320 of IV contrast COMPARISON: None. FINDINGS: VASCULATURE: Right common carotid artery: Unremarkable. No occlusion or significant stenosis. No dissection. Right internal carotid artery: Unremarkable. Extracranial segment is patent with no occlusion or significant stenosis. No dissection. Right external carotid artery: Unremarkable. No occlusion. Right vertebral artery: Unremarkable. No occlusion or significant stenosis. No dissection. Left common carotid artery: Unremarkable. No occlusion or significant stenosis. No dissection. Left internal carotid artery: There is significant distal aspect of the left carotid artery with evidence of intimal flap consistent with dissection. This extends into the petrous portion of the left internal carotid artery. Extracranial segment is patent with no occlusion or significant stenosis. Left external carotid artery: Unremarkable. No occlusion. Left vertebral artery: Unremarkable. No occlusion or significant stenosis. No dissection. NECK: Bones/joints: Unremarkable. No acute fracture. Soft tissues: Unremarkable. Lung apices: Clear. CAROTID STENOSIS REFERENCE USING NASCET CRITERIA: % ICA stenosis = (1 - narrowest ICA diameter/diameter of distal cervical ICA) x 100. Mild - <50% stenosis. Moderate - 50-69% stenosis. Severe - 70-94% stenosis. Near occlusion - 95-99% stenosis. Occluded - 100% stenosis. IMPRESSION: 1. 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 2. Remainder of the CT angiogram of the neck is unremarkable. Communications: Call Doctor Other Electronically signed by: Nicolasa Anne MD 04/27/23 01:31 AM Brain MRI 04/27/23 02:41 Exam(s): MRI HEAD Without Contrast EXAM: MR Head Without Intravenous Contrast CLINICAL HISTORY: Reason for exam: left internal carotid artery dissection on CT. TECHNIQUE: Magnetic resonance images of the head/brain without intravenous contrast in multiple planes. COMPARISON: MRI brain dated 10/20/2013. CT brain dated 04/27/2023. CT brain dated 10/19/2013. FINDINGS: Brain: Trace focal area of susceptibility artifact identified within the deep white matter of right posterior parietal lobe, just adjacent to the right occipital lobe most compatible with venous angioma/DVA measuring 7.2 mm. No hemorrhage. No acute infarct. Ventricles: Unremarkable. No ventriculomegaly. Bones/joints: Unremarkable. No acute fracture. Sinuses: Unremarkable as visualized. No acute sinusitis. Mastoid air cells: Unremarkable as visualized. No mastoid effusion. Orbits: Unremarkable as visualized. IMPRESSION: 1. Trace calcification within the RIGHT posterior parietal lobe measuring 7.2 mm, stable in the interval and most compatible with venous angioma/DVA. 2. No acute stroke or intracranial hemorrhage. 3. No acute intracranial process, stable study in the interval. Electronically signed by: Nicolasa Anne MD 04/27/23 03:54 AM Hospital Course (1) Headache: (2) Carotid artery dissection: Sowmya Abraham is a 32 year-old female with PMHx of depression presents with headache. Headache | ICA Dissection -presented with 5 days persistent L sided headache, initially began suddenly on Sunday. Notes that in the past few days she had occasional blurry vision in her left eye during the intense left sided headache. No neurologic deficits on presentation, labs unremarkable. Findings as below. Most likely the dissection was caused by manipulation of the cervical spine from chiropractic sessions, could consider some contributing factor from untreated underlying hypertension. -CTA head/neck: Dissection involving the distal aspect of the left internal carotid artery with diffuse narrowing and intimal flap visualized extending into the petrous portion of the left internal carotid artery -Brain MRI: no stroke; incidental finding of trace calcification within the RIGHT posterior parietal lobe measuring 7.2 mm, stable in the interval and most compatible with venous angioma/DVA -Neurology consulted, recommending medication management with antihypertensives and daily aspirin 81mg. -Patient will follow up with neurology as outpatient, recommending repeat imaging with CT angio in short interval -Patient had notable improvement of headache with treatment of blood pressure, was comfortable with discharge. Sent prescription for Carvedilol 6.25mg BID and Aspirin 81mg. Advised patient to check BP twice daily at different times of the day, monitoring average BP. Advised patient to return to ER if she develops new/sudden neurologic symptoms or sudden worsened headache. Patient to follow up with PCP early next week, call on-call provider this weekend if average BP remains above 160/100s to discuss if additional dose of Carvedilol/dose adjustment is necessary. -Provided patient work excuse to avoid all heavy lifting until cleared by neurology Depression -cont. sertraline Total Time Total Time Spent Total Time Spent (In Minutes): .<30 Discharge Plan Discharge Items Patient Disposition: Home - Self-Care Reason For Visit: HEADACHE Discharge Diagnosis: Internal carotid artery dissection Activity: Per Instructions section Non-emergency contact: Primary Care Provider and Neurologist Call non-emergency contact if: you have any medication questions and your symptoms worsen Follow-up/Referrals: Alex Novak MD [Physician] - (Please schedule follow up per neurology consultation note) Rojelio Lara [Primary Care Provider] - (please schedule hospital discharge appointment for early next week) Diet: Regular Addtl Attending Provider Instructions: You were admitted to the hospital for left internal carotid artery dissection. Left Internal Carotid Artery Dissection -This was identified on imaging as the cause of your headaches -Fortunately after evaluation by neurology, we are able to manage your condition with treating your blood pressure and a daily aspirin. The neurologist will follow up with you as an outpatient and will likely repeat imaging studies -The other important consideration is to avoid all heavy lifting until cleared by the neurologist -If you develop sudden worsening symptoms of severe headache/visual changes, etc. please return to the emergency room. Blood Pressure -We are starting you on a medication called Carvedilol 6.25mg which you will take twice daily -Would like you to check your blood pressure twice per day at different times -As we discussed, blood pressure will normally go up and down throughout the day- therefore we are most focused on the "average" between the blood pressure readings. We are trying to avoid going above an average of 160/100s. If your BP stays above this consistently on average, please call the on-call doctor and we may need to change the dosage of your medicine. -As we discussed, please be cautious when moving from sitting to standing and sit down/lie down if you start to feel lightheaded. A discharge summary will be sent to your primary care physician to ensure continuity of care. Follow-up appointments: Make a follow-up appointment with your PCP within the next week. It is very important that you follow up with them shortly after discharge from the hospital. Medications: Your medication list has been reviewed and reconciled upon discharge to ensure accuracy and continuity of care. An updated list of all your medications is included with your hospital discharge paperwork. Please review this list cl osely, and make note of any changes. We sent a new medication called Carvedilol to your pharmacy. Take Carvedilol 6.25mg one tablet twice daily. I also sent a prescription for Aspirin to your pharmacy. Take Aspirin 81mg once daily. Please note- this is an over the counter medication and may be cheaper to purchase not as a prescription. Thank you for allowing us to participate in your care. Pending Studies at Discharge: No Stand-Alone Forms: [facility], Work/School Release, Smoking Cessation Medications and DC Order Prescriptions: New carvedilol 6.25 mg tablet 6.25 mg PO BID 30 Days Qty: 60 0RF Rx Instructions: must administer with a meal/food aspirin 81 mg capsule 81 mg PO DAILY 30 Days Qty: 30 0RF Continued sertraline 50 mg tablet 50 mg PO DAILY Discharge Orders: Discharge Order (Routine); Ordered 04/27/23 Ordered By: Danya Martinez Admission Data Admit Date/Time: 04/27/23 03:11 Attending Provider: Gary Bermudez Admit Provider: Williams Villalpando Primary Care Provider: Rojelio Lara Other Providers: Alex Novak; Curry Choudhury Other Interventions: Discharge Summary Assessment (RN) Last Done: 04/27/23 14:45 Supervising Physician Co-Signing Physician Notes I personally examined the patient and verified all alejandro points of history and exam, discussed case, and agree with decision making with Dr Martinez feeling okay overall. Headache coming back a little bit, but no visual changes no numbness no weakness. Feels up to going home. Case discussed with neurology, input greatly appreciated. Case discussed with patient and fianc in depth and answered all questions the best my ability. She notes that symptoms started on Sunday, she actually worked out a few days this weekhas had a headache all week, but no neurodeficits vitals noted, in general she is awake and alert pleasant no distress. HEENT normocephalic atraumatic mucous membranes moist. Breathing unlabored no accessory muscle use good effort. Skin shows no rashes no pallor or icterus. No neurodeficits. See resident and neurology notes for further details as well. Carotid dissectionfortunately other than headache asymptomatic. Aspirin, blood pressure control. Safe for homeoutlined red flagssymptomsworsening/change/worst headache of her life, or any focal deficits would require an JIM return to the ER. Discussed blood pressure controland home monitoring, recommended at least twice daily monitoring, and titration of carvedilol to affect better long-term controlwhen to call PCP with asymptomatic elevations for guidance. Updated PCP of situation as well.
--- NOTE | 2023-04-27 20:28 | Billing Data ---
Date of Service April 27, 2023 Coding Level of Care Code 35826 IN/OBS DISCH 30 MIN/LESS
--- NOTE | 2023-04-27 20:29 | Billing Data ---
Date of Service April 27, 2023 Coding Level of Care Code 21242 IN/OBS DISCH 30 MIN/LESS
[2023-04-28] MEDS ORDERED: ASPIRIN/ALUM/MAGNES/CAL CARB 325 MG TAB PO SCH (09:00)
== END 2023-04-27 15:00 | disposition home or self-care (01) ==
LOC: ED 22:57 → EDINP 22:57 → SUATTDRO 04-27 03:11 → EDINP 04-27 03:20

== ENCOUNTER 2024-02-10 07:05 | Observation (INO) ==
--- NOTE | 2024-02-10 07:50 | Emergency Department Note ---
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 She also had a mild headache as well and says that when she takes a deep breath she coughs. She felt like her arm was more less asleep. she had no symptoms in the face or the leg no change in vision or problems with her speech. No fever. no fall or trauma. She says she still has a slight headache she went to bed thinking it would go away but woke up and just feels a little uncomfortable left arm she was diagnosed with a carotid dissection in April and is on aspirin and carvedilol she has been followed by neurology and had a follow-up imaging in September which she tells me looked better. Denies any other medical problems denies Home Medications Medication Instructions Recorded Confirmed Type acetaminophen 500 mg tablet 500 mg PO QID PRN Headache 06/19/23 02/10/24 History (Tylenol Extra Strength) aspirin 81 mg tablet,delayed 81 mg PO DAILY 06/19/23 02/10/24 History release multivitamin [Daily Multi-Vitamin] 2 gummy PO DAILY 06/22/23 02/10/24 History ubrogepant 100 mg tablet (Ubrelvy) 100 mg PO ONCE PRN Migraine 07/16/23 02/10/24 Rx Headache #10 tabs hydrochlorothiazide 12.5 mg capsule 12.5 mg PO DAILY 10/10/23 02/10/24 History carvedilol 6.25 mg tablet 12.5 mg PO BID 02/10/24 02/10/24 History Allergies Allergy/AdvReac Type Severity Reaction Status Date / Time cephalexin Allergy Unknown hives Verified 10/10/23 13:46 sulfamethoxazole Allergy Unknown hives Verified 10/10/23 13:46 trimethoprim Allergy Unknown hives Verified 10/10/23 13:46 Past Med/Surg History Problem List (Updated 02/10/24 @ 14:18 by Rojelio Robbins MD) 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 (Acute) History of carotid artery dissection (Acute) Stroke-like symptoms (Acute) Cerebral cavernoma Tingling of left upper extremity (Acute) Carotid artery dissection (~04/2023) Insomnia Hx laparoscopic cholecystectomy (02/07/23) Robotic Assisted Laparoscopic Cholecystectomy (Not Applicable) - Juan Diego Chaney, DO, FACS Abnormal head CT (Acute) Headache (Acute) Vertigo (Acute) LGSIL (low grade squamous intraepithelial dysplasia) Gestational diabetes Cholelithiasis Kidney stones (Chronic) able to pass Medical History Hypertension Vertigo Abnormal CT of brain Ureteral calculus, left Hemangioma [id number] right hepatic lob hyperechoic nodule, possible hemangioma on 12/14/22 abdominal u/s History of COVID-19 hx - no hosp; resolved Surgical History History of surgical removal of pilonidal cyst S/P wisdom tooth extraction Hx of appendectomy Family History Mother Ovarian cancer diagnosed in 20s Hypertension Father , age 67 of an OR Heart disease Myocardial infarction Sister Migraine headache Social History Smoking Status: Never smoker Tobacco Type: Cigarettes Age Started Using Tobacco: 16; Age Quit Using Tobacco: 30; Cigarettes Per Day: She was a variable smoker over this time smoking on and off.; Second Hand Exposure: No; Do You Dip or Chew Tobacco: No; Hx Alcohol Use: No Hx Substance Use: No Preferred Language: French Communication Ability: Effective Commercial Front Load Operator Required: No Beliefs That Will Affect Care: None marital status: Single marital status details: FOB: Emerson (24) [phone] Current Living Situation: Significant Other Current Living Situation Comment: Ivanaancejohan and2 children current occupational status: employed current occupation: [employer] 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 How many Children do You have: 2 Other Information That Helps Us Care for You: No Feels Safe at Home: Yes Safety Concerns: Feels Safe At This Time during the past year weight has: increased > 10 lbs Assistive Devices: None Review of Systems A total of 10 systems reviewed and were otherwise negative Physical Exam Vital Signs Vital Signs - 24 hr 02/10/24 07:17 02/10/24 07:43 02/10/24 08:08 Temperature 36.5 C Temperature Source Oral Pulse Rate 76 81 Pulse Rate [Apical] 88 Pulse Rhythm [Apical] Pulse Strength [Apical] Respiratory Rate 20 16 Respiratory Effort / Characteristics Non-Labored Spontaneous Non-Labored Respiratory Depth Normal Normal Respiratory Pattern Regular Regular Blood Pressure 141/99 H Blood Pressure [Right Arm] 161/126 H Blood Pressure Mean 113 Blood Pressure Mean [Right Arm] 137 Blood Pressure Position [Right Arm] Pulse Oximetry 97 98 Oxygen Delivery Method Room Air Room Air Oxygen Flow Rate Sepsis Recent Fever Within 48 Hours No Sepsis New/Unexplained Change in Mental Status N/A Sepsis Action Taken by Nursing No Action Required 02/10/24 08:40 02/10/24 08:51 02/10/24 08:52 Temperature 36.6 C Temperature Source Oral Pulse Rate Pulse Rate [Apical] 86 77 Pulse Rhythm [Apical] Regular Pulse Strength [Apical] Normal Respiratory Rate 20 18 Respiratory Effort / Characteristics Non-Labored Spontaneous Non-Labored Respiratory Depth Normal Normal Respiratory Pattern Regular Regular Blood Pressure Blood Pressure [Right Arm] 142/107 H 142/107 H Blood Pressure Mean Blood Pressure Mean [Right Arm] 118 118 Blood Pressure Position [Right Arm] Semi-fowlers Pulse Oximetry 95 98 98 Oxygen Delivery Method Room Air Room Air Room Air Oxygen Flow Rate 0 Sepsis Recent Fever Within 48 Hours Sepsis New/Unexplained Change in Mental Status Sepsis Action Taken by Nursing General: Well developed well nourished young female who appears in no acute distress, breathing comfortably on room air. Normal speech HEENT: Normal cephalic atraumatic. Pupils are equal round and reactive to light. Extraocular movements are intact. Oropharynx is pink with moist mucous membranes. No swelling of the mouth lips or tongue. Neck: Supple with a midline trachea. No meningeal signs or stiffness, no JVD or bruits. No Stridor. Chest: Clear to auscultation bilaterally. No wheezes or rhonchi. No increased work of breathing. Heart: Regular rate and rhythm without murmurs or gallops. Abdomen: Soft nontender, nondistended without rebound guarding or rigidity. Extremities: No cyanosis clubbing or edema. No calf tenderness or assymetry Spine/Back. Non tender to palpation. No CVA tenderness Skin: Good turgor without rashes. Neurologic exam: Cranial nerves two through 12 are intact. Motor and sensation are intact and symmetrical throughout. She says that she has tingling her left arm when I checked sharp and dull it seems to be intact there is no pronator drift. No facial asymmetry or droop. No tremor. Finger-nose intact Course Administered Medications Discontinued Medications Aspirin (Aspirin 81 Mg Chew) 324 mg PO NOW STA Stop: 02/10/24 08:55 Last Admin: 02/10/24 09:04 Dose: 324 mg Documented By: MIAN Gadobutrol (Gadobutrol 30ml Vial) 9 ml IV ONCE ONE Stop: 02/10/24 11:21 Last Admin: 02/10/24 11:20 Dose: 9 ml Documented By: BALBIR Ioversol (Optiray 320 125ml) 119 ml IV ONCE ONE Stop: 02/10/24 07:56 Last Admin: 02/10/24 07:55 Dose: 119 ml Documented By: UNA Medical Decision Making Differential Diagnosis Stroke, carotid artery or vascular disease or dissection, TIA, anxiety, musculoskeletal, electrolyte or metabolic abnormality Medical Records Attestation: I reviewed the patient's medical records. Home Medications Current Medication List: was personally reviewed by me Laboratory Data Attestation: I reviewed the patient's lab results. 02/10/24 07:34 02/10/24 07:34 Lab Results 02/10/24 02/10/24 Range/Units 07:34 07:45 WBC 7.56 (4.8-10.8) K/ul RBC 4.92 (4.20-5.40) M/uL Hgb 13.9 (12.0-16.0) g/dl Hct 41.1 (37.0-47.0) % MCV 83.5 (80.0-100.0) fL MCH 28.3 (25.0-34.0) pg MCHC 33.8 (32.0-36.0) g/dL RDW Std Deviation 37.9 (36.4-46.3) fL RDW Coeff of Pili 12.5 (11.5-14.5) % Plt Count 364 (130-400) K/uL MPV 10.3 (9.4-12.4) fL Immature Gran % (Auto) 0.4 % Neut % (Auto) 60.8 % Lymph % (Auto) 26.5 % Cooper % (Auto) 8.6 % Eos % (Auto) 3.0 % Baso % (Auto) 0.7 % Neut # (Auto) 4.60 (1.40-6.50) K/uL Lymph # (Auto) 2.00 (1.20-3.40) K/uL Cooper # (Auto) 0.65 H (0.11-0.59) K/uL Eos # (Auto) 0.23 (0.00-0.50) K/uL Baso # (Auto) 0.05 (0.00-0.20) K/uL Immature Gran # (Auto) 0.03 (0.01-0.20) K/uL PT 10.2 (9.0-12.0) Seconds INR 0.9 (0.9-1.1) APTT 26 (21-31) Seconds PTT Ratio 1.0 Sodium 140 (136-145) mmol/L Potassium 3.6 (3.5-5.1) mmol/L Chloride 104 (98-107) mmol/L Carbon Dioxide 28 (21-32) mmol/L Anion Gap 8 (3-11) BUN 10 (6-23) mg/dl Creatinine 0.72 (0.6-1.2) mg/dl Est Cr Clr Drug Dosing 121.2 ml/min eGFR 113.15 BUN/Creatinine Ratio 13.9 (10-20) Glucose 109 H (70-99(Fasting)) mg/dl POC Glucose 111 H (70-99) mg/dl Calcium 9.5 (8.6-10.3) mg/dl Magnesium 2.0 (1.7-2.4) mg/dl Total Bilirubin 0.4 (0.2-1.0) mg/dl AST 16 (13-39) U/L ALT 18 (7-52) U/L Alkaline Phosphatase 74 (34-104) U/L Troponin I High Sens 3.8 (0-14) pg/ml Total Protein 7.9 (6.0-8.3) gm/dl Albumin 4.6 (3.4-5.0) gm/dl Globulin 3.3 (2.5-4.0) gm/dl Albumin/Globulin Ratio 1.4 (0.9-2) Imaging Data Attestation: I personally reviewed and interpreted this imaging study as follows: My Impression: Head CTno hemorrhage or mass effect seen. Radiologist's Impression: Head CT 02/10/24 07:45 CT OF THE HEAD WITHOUT CONTRAST CLINICAL HISTORY: neuro deficit, acute stroke suspected COMPARISON STUDY: Head CT June 19, 2023. TECHNIQUE: Helical axial images of the head were obtained without IV contrast. Automated exposure control was utilized for the study. A dose lowering technique was utilized adhering to the principles of ALARA. FINDINGS: No acute intracranial hemorrhage, midline shift or mass effect is present. The ventricular system is unremarkable. The basal cisterns are patent. No extra-axial collections are present. There are no findings to suggest acute dural sinus thrombosis or acute territorial infarct. No significant calvarial abnormalities are present. Visualized portions of the sinuses and mastoid air cells are clear. IMPRESSION: No acute intracranial findings. ACT 112: Negative or not required by law. Electronically signed by: George Chaudhari M.D. 02/10/2024 8:38 AM Head CTA 02/10/24 07:45 CTA ANGIOGRAPHY OF THE HEAD CLINICAL HISTORY: neuro deficit, acute stroke suspected COMPARISON STUDY: CTA of the head June 19, 2023. TECHNIQUE: Helical axial images of the head were obtained following uneventful intravenous administration of 119 cc of Optiray. Sagittal and coronal reconstructions were viewed as well as maximal intensity projections on an independent 3-D workstation. Automated exposure control was utilized for the study. A dose lowering technique was utilized adhering to the principles of ALARA. FINDINGS: There is mild calcified plaque within the right cavernous carotid. No intracranial aneurysm is identified. The bilateral M1, M2, A1 and A2 segments are patent. The intracranial vessels appear slightly diminutive but unchanged since prior exam. The posterior circulation is intact. There is persistence of the bilateral posterior cerebral arteries. Ventricular system is normal. Basal cisterns are patent. There are no extra-axial collections. IMPRESSION: No large vessel occlusion. No intracranial aneurysm. ACT 112: Negative or not required by law. Electronically signed by: George Chaudhari M.D. 02/10/2024 8:49 AM Neck CTA 02/10/24 07:45 CT ANGIOGRAPHY OF THE NECK WITH CONTRAST CLINICAL HISTORY: neuro deficit, acute stroke suspected COMPARISON STUDY: CTA of the neck October 01, 2023. Technique: CT angiography of the carotid and vertebral arteries was obtained using Optiray and 3D reconstruction on an independent workstation. NASCET criteria was utilized. Automated exposure control was utilized for the study. A dose lowering technique was utilized adhering to the principles of ALARA. Findings: Visualized portions of the cervical lymphadenopathy. There are no cervical spine fracture. The bilateral common carotid, cervical internal carotid and vertebral arteries are patent. No acute dissection is present. Mild luminal narrowing of the distal cervical and petrous portions of the left cervical internal carotid artery is unchanged since CTA of October 01, 2023. This remains improved when compared to CT of April 27, 2023. The vertebral arteries are patent. There is no aneurysm within the neck. IMPRESSION: 1. No change since CTA of October 01, 2023. No acute dissection within the neck. 2. Mild luminal narrowing of the distal cervical and petrous portions of the left internal carotid artery, unchanged since prior CTA. Significant improvement compared to earlier CT of April 27, 2023. ACT 112: Negative or not required by law. Electronically signed by: George Chaudhari M.D. 02/10/2024 8:45 AM ECG Data Attestation: I personally reviewed and interpreted this ECG as follows: Indication: + weakness Rate (beats per minute): 82 Rhythm: + normal sinus ECG Intervals/blocks: + Normal QRS, + Normal QT and + Normal IN ECG Flora: + Normal ECG ST segments: + Normal ST segments ECG Findings: no PACs or no PVCs Comparison ECG Date: from (04/26/23) Change: no significant change MDM Narrative This patient comes in as described above. She was placed in room A10. She has a history of a carotid artery dissection and is on aspirin for this she has tingling her left arm since yesterday at 9 PM. On my exam she is intact to sharp and dull. Given her history there is concern that this could be related. I did call a stroke alert she is certainly outside of the window for thrombolytics but I wanted neurology to weigh in on the possibility of a relationship to her carotid artery. EKG was obtained and shows no ischemic changes. Her labs were unremarkable. I did discuss the case at length with the [facility] stroke neurologist who did see her via telestroke. She feels the patient does need to stay for MRI of the head and the neck as well as cardiac monitoring and monitoring overnight. She did also want me to load her with 1 adult aspirin and I ordered 324 p.o. and then she can go back to 81 mg tomorrow. I discussed the case at length in consultation with the hospitalist service and they saw her in the ER and will be admitting her for these measures. 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
[2024-02-10] MEDS: OPTIRAY 320 125ml IV ONE (07:55)
[2024-02-10 08:08] LABS: Basophils # (auto) 0.05 K/uL (0.00-0.20); Basophils % (auto) 0.7 %; Eosinophils # (auto) 0.23 K/uL (0.00-0.50); Hematocrit (blood only) 41.1 % (37.0-47.0); Hemoglobin 13.9 g/dl (12.0-16.0); Immature Granulocytes # (auto) 0.03 K/uL (0.01-0.20); Immature Granulocytes % (auto) 0.4 %; Lymphocytes % (auto) 26.5 %; Mean Corpuscular Hemoglobin 28.3 pg (25.0-34.0); Mean Corpuscular Hgb Conc 33.8 g/dL (32.0-36.0); Mean Corpuscular Volume 83.5 fL (80.0-100.0); Mean Platelet Volume 10.3 fL (9.4-12.4); Monocytes # (auto) 0.65 K/uL (0.11-0.59); Monocytes % (auto) 8.6 %; Neutrophils % (auto) 60.8 %; Platelet Count 364 K/uL (130-400); RDW Coefficient of Variation 12.5 % (11.5-14.5); RDW Standard Deviation 37.9 fL (36.4-46.3); Red Blood Count 4.92 M/uL (4.20-5.40); White Blood Count 7.56 K/ul (4.8-10.8)
[2024-02-10 08:26] LABS: Albumin Globulin Ratio 1.4 (0.9-2); Albumin Level 4.6 gm/dl (3.4-5.0); BUN Creatinine Ratio 13.9 (10-20); Bilirubin,Total 0.4 mg/dl (0.2-1.0); Calcium 9.5 mg/dl (8.6-10.3); Creatinine Clr Calc Pharmacy 121.2 ml/min; Globulin 3.3 gm/dl (2.5-4.0); Potassium 3.6 mmol/L (3.5-5.1); Total Protein 7.9 gm/dl (6.0-8.3)
[2024-02-10 08:32] LABS: Troponin I High Sensitivity 3.8 pg/ml (0-14)
[2024-02-10 08:39] LABS: INR 0.9 (0.9-1.1); Partial Thromboplastin Time 26 Seconds (21-31); Prothrombin Time 10.2 Seconds (9.0-12.0)
--- NOTE | 2024-02-10 08:40 | CT Scan Report ---
CT OF THE HEAD WITHOUT CONTRAST CLINICAL HISTORY: neuro deficit, acute stroke suspected COMPARISON STUDY: Head CT June 19, 2023. TECHNIQUE: Helical axial images of the head were obtained without IV contrast. Automated exposure con trol was utilized for the study. A dose lowering technique was utilized adhering to the principles o f ALARA. FINDINGS: No acute intracranial hemorrhage, midline shift or mass effect is present. The ventricular system is unremarkable. The basal cisterns are patent. No extra-axial collections are present. There are no findings to suggest acute dural sinus thrombosis or acute territorial infarct. No significant calvarial abnormalities are present. Visualized portions of the sinuses and mastoid air cells are demetrius ar. IMPRESSION: No acute intracranial findings. ACT 112: Negative or not required by law. Electronically signed by: George Chaudhari M.D. 02/10/2024 8:38 AM
--- NOTE | 2024-02-10 08:48 | CT Scan Report ---
CT ANGIOGRAPHY OF THE NECK WITH CONTRAST CLINICAL HISTORY: neuro deficit, acute stroke suspected COMPARISON STUDY: CTA of the neck October 01, 2023. Technique: CT angiography of the carotid and vertebral arteries was obtained using Optiray and 3D rec onstruction on an independent workstation. NASCET criteria was utilized. Automated exposure control was utilized for the study. A dose lowering technique was utilized adhering to the principles of ALA RA. Findings: Visualized portions of the cervical lymphadenopathy. There are no cervical spine fracture. The bilateral common carotid, cervical internal carotid and vertebral arteries are patent. No acute d issection is present. Mild luminal narrowing of the distal cervical and petrous portions of the left cervical internal carotid artery is unchanged since CTA of October 01, 2023. This remains improved when compared to CT of April 27, 2023. The vertebral arteries are patent. There is no aneurysm within the neck. IMPRESSION: 1. No change since CTA of October 01, 2023. No acute dissection within the neck. 2. Mild luminal narrowing of the distal cervical and petrous portions of the left internal carotid ar timothy, unchanged since prior CTA. Significant improvement compared to earlier CT of April 27, 2023. ACT 112: Negative or not required by law. Electronically signed by: George Chaudhari M.D. 02/10/2024 8:45 AM
--- NOTE | 2024-02-10 08:52 | CT Scan Report ---
CTA ANGIOGRAPHY OF THE HEAD CLINICAL HISTORY: neuro deficit, acute stroke suspected COMPARISON STUDY: CTA of the head June 19, 2023. TECHNIQUE: Helical axial images of the head were obtained following uneventful intravenous administr ation of 119 cc of Optiray. Sagittal and coronal reconstructions were viewed as well as maximal inten sity projections on an independent 3-D workstation. Automated exposure control was utilized for the study. A dose lowering technique was utilized adhering to the principles of ALARA. FINDINGS: There is mild calcified plaque within the right cavernous carotid. No intracranial aneurysm is identified. The bilateral M1, M2, A1 and A2 segments are patent. The intracranial vessels appear slightly diminutive but unchanged since prior exam. The posterior circulation is intact. There is fet al persistence of the bilateral posterior cerebral arteries. Ventricular system is normal. Basal cist erns are patent. There are no extra-axial collections. IMPRESSION: No large vessel occlusion. No intracranial aneurysm. ACT 112: Negative or not required by law. Electronically signed by: George Chaudhari M.D. 02/10/2024 8:49 AM
[2024-02-10] MEDS: ASPIRIN 81 MG CHEW PO STA (09:04)
--- NOTE | 2024-02-10 09:08 | History & Physical Report ---
Date of Service February 10, 2024 Assessment & Plan (1) Tingling of left upper extremity: Plan: Attending: Dr. 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 Began having left upper extremity paresthesias last evening. This was associated with mild headache. Presented this morning and a stroke alert was called. Initial imaging was unchanged from prior imaging. Patient last seen by neurology in September 2023 and plan to to acquire updated images in 6 months. Patient has no further symptoms at this time other than a mild headache CT head with no acute intracranial findings CTA head with no large vessel occlusion. No intracranial aneurysm appreciated. CTA neck with no change since CTA of October 01, 2023. No acute dissection within the next. There is mild luminal narrowing of the distal cervical and petrous portions of the left internal carotid artery. This is unchanged since prior CTA. There is significant improvement compared to earlier CT of April 27, 2023 Notes from stroke alert with Tanna reviewed MRI of the brain ordered Will also obtain an MRI of the cervical spine Patient received aspirin 324 mg p.o. in the emergency department. Will continue with aspirin 81 mg p.o. daily in the morning Will check an echocardiogram with bubble study Admit to medical telemetry with neurochecks every 4 hours and hopefully be able to discharge tomorrow if no acute findings Hold prophylactic anticoagulation pending MRI brain. Will order SCDs and CARLY hose. Allow for permissive hypertension [id number] pending complete workup. Target MAP 90 Check fasting lipid panel in the morning Neurology was consulted. Appreciate Dr. Armstrong's input (2) Carotid artery dissection: Plan: April 2023 secondary to manipulation Follows with [facility] See above for workup (3) Headache: Plan: Patient with history of migraines Hold Ubrogepant for now Tylenol as needed Plan Admit to medical telemetry for observation History of Present Illness Chief Complaint: Left-sided paresthesias of the upper extremity Primary Care Provider: Rojelio Lara Attending: Dr. Rust This is a 33-year-old female that presents for left-sided paresthesias of the upper extremity. She presented as a stroke alert. Patient had a left carotid dissection secondary chiropractic manipulation in April 2023. Patient does follow with [facility] neurology and was last seen by Genia Cantu PA-C 10/10/2023. CTA of the neck this morning shows no change since CTA of October 01, 2023. Mild luminal narrowing of the distal cervical and petrous portions of the left internal carotid artery, unchanged since prior CTA. Significant improvement compared to earlier CT of April 27, 2023. CTA of the head shows no large vessel occlusion. There is no intracranial aneurysm. Blood pressure slightly elevated 142/107. Patient is afebrile. Symptoms started last evening at approximately 9 PM. She complained at that time that her left arm was tingly and had some mild discomfort. She also had a mild headache which is exacerbated with deep breath and cough. No symptoms in the face or legs. No vision changes. No slurred speech. No weakness to upper or lower extremities. Mild headache. History of migraines. Patient with no other acute complaints at this time. Allergies Allergy/AdvReac Type Severity Reaction Status Date / Time cephalexin Allergy Unknown hives Verified 10/10/23 13:46 sulfamethoxazole Allergy Unknown hives Verified 10/10/23 13:46 trimethoprim Allergy Unknown hives Verified 10/10/23 13:46 Home Medications Medication Instructions Recorded Confirmed Type acetaminophen 500 mg tablet 500 mg PO QID PRN Headache 06/19/23 02/10/24 History (Tylenol Extra Strength) aspirin 81 mg tablet,delayed 81 mg PO DAILY 06/19/23 02/10/24 History release multivitamin [Daily Multi-Vitamin] 2 gummy PO DAILY 06/22/23 02/10/24 History ubrogepant 100 mg tablet (Ubrelvy) 100 mg PO ONCE PRN Migraine 07/16/23 02/10/24 Rx Headache #10 tabs hydrochlorothiazide 12.5 mg capsule 12.5 mg PO DAILY 10/10/23 02/10/24 History carvedilol 6.25 mg tablet 12.5 mg PO BID 02/10/24 02/10/24 History Past Med/Surg History Problem List (Updated 02/10/24 @ 07:50 by Rojelio Robbins MD) Tingling of left upper extremity (Acute) Carotid artery dissection (~04/2023) Insomnia Hx laparoscopic cholecystectomy (02/07/23) Robotic Assisted Laparoscopic Cholecystectomy (Not Applicable) - Juan Diego Chaney, DO, FACS Abnormal head CT (Acute) Headache (Acute) Vertigo (Acute) LGSIL (low grade squamous intraepithelial dysplasia) Gestational diabetes Cholelithiasis Kidney stones (Chronic) able to pass Medical History Hypertension Vertigo Abnormal CT of brain Ureteral calculus, left Hemangioma [id number] right hepatic lob hyperechoic nodule, possible hemangioma on 12/14/22 abdominal u/s History of COVID-19 hx - no hosp; resolved Surgical History History of surgical removal of pilonidal cyst S/P wisdom tooth extraction Hx of appendectomy Family History Mother Ovarian cancer diagnosed in 20s Hypertension Father , age 67 of an ID Heart disease Myocardial infarction Sister Migraine headache Social History Smoking Status: Never smoker Tobacco Type: Cigarettes Age Started Using Tobacco: 16; Age Quit Using Tobacco: 30; Cigarettes Per Day: She was a variable smoker over this time smoking on and off.; Second Hand Exposure: No; Do You Dip or Chew Tobacco: No; Hx Alcohol Use: No Hx Substance Use: No Preferred Language: Vietnamese Communication Ability: Effective Dog Handler Or Trainer Required: No Beliefs That Will Affect Care: None marital status: Single marital status details: FOB: Emerson (24) [phone] Current Living Situation: Significant Other Current Living Situation Comment: Ivanaancejohan andBillie children current occupational status: employed current occupation: [employer] for [employer]. In [employer] How many Children do You have: 2 Other Information That Helps Us Care for You: No Feels Safe at Home: Yes Safety Concerns: Feels Safe At This Time during the past year weight has: increased > 10 lbs Assistive Devices: None Review of Systems 2 Review of Systems: A total of 10 systems was reviewed and is negative other than as listed in the HPI Physical Exam 2 Physical Exam: GENERAL : No acute distress EYES: No icterus, gaze conjugate NOSE: No evidence of epistaxis MOUTH: No lesions or candidiasis NECK: Supple. No appreciation of carotid bruits. No nuchal rigidity. No pain with rotation of neck to the right or to the left against hand strength. LUNGS: CTA B/L, no wheezes, rales or rhonchi HEART: Regular, rate controlled ABDOMEN: Soft, NT, ND, BS Present EXTREMITIES: No LE edema, pedal pulses intact NEURO: A&OX3 pupils equal round and reactive to light bilaterally. Extraocular movement is intact. Tongue is midline. No facial droop. Strength is equal and appropriate to bilateral upper and lower extremities. No pronator drift. Cerebellar function is intact with [id number], rapid alternating movements, [id number]. Toes are downgoing bilaterally. Deep tendon reflexes 2/4 to the bicep, brachioradialis, and patellar tendons. Memory is intact. Patient is a good historian. No appreciation of focal deficits. Results & Data Results & Data Vital Signs (Past 12 Hours) Vital Signs Temp Pulse Pulse Resp BP BP Pulse Ox 02/10/24 08:52 98 02/10/24 08:51 77 18 142/107 H 98 02/10/24 08:40 36.6 C 86 20 142/107 H 95 02/10/24 08:08 88 16 161/126 H 98 02/10/24 07:43 81 02/10/24 07:17 36.5 C 76 20 141/99 H 97 O2 Del Method O2 Flow Rate 02/10/24 08:52 Room Air 0 02/10/24 08:51 Room Air 02/10/24 08:40 Room Air 02/10/24 08:08 Room Air 02/10/24 07:43 02/10/24 07:17 Room Air Laboratory Results 02/10/24 07:34 02/10/24 07:[address] 02/10/24 07:45 CT OF THE HEAD WITHOUT CONTRAST CLINICAL HISTORY: neuro deficit, acute stroke suspected COMPARISON STUDY: Head CT June 19, 2023. TECHNIQUE: Helical axial images of the head were obtained without IV contrast. Automated exposure control was utilized for the study. A dose lowering technique was utilized adhering to the principles of ALARA. FINDINGS: No acute intracranial hemorrhage, midline shift or mass effect is present. The ventricular system is unremarkable. The basal cisterns are patent. No extra-axial collections are present. There are no findings to suggest acute dural sinus thrombosis or acute territorial infarct. No significant calvarial abnormalities are present. Visualized portions of the sinuses and mastoid air cells are clear. IMPRESSION: No acute intracranial findings. ACT 112: Negative or not required by law. Electronically signed by: George Chaudhari M.D. 02/10/2024 8:38 AM Head CTA 02/10/24 07:45 CTA ANGIOGRAPHY OF THE HEAD CLINICAL HISTORY: neuro deficit, acute stroke suspected COMPARISON STUDY: CTA of the head June 19, 2023. TECHNIQUE: Helical axial images of the head were obtained following uneventful intravenous administration of 119 cc of Optiray. Sagittal and coronal reconstructions were viewed as well as maximal intensity projections on an independent 3-D workstation. Automated exposure control was utilized for the study. A dose lowering technique was utilized adhering to the principles of ALARA. FINDINGS: There is mild calcified plaque within the right cavernous carotid. No intracranial aneurysm is identified. The bilateral M1, M2, A1 and A2 segments are patent. The intracranial vessels appear slightly diminutive but unchanged since prior exam. The posterior circulation is intact. There is persistence of the bilateral posterior cerebral arteries. Ventricular system is normal. Basal cisterns are patent. There are no extra-axial collections. IMPRESSION: No large vessel occlusion. No intracranial aneurysm. ACT 112: Negative or not required by law. Electronically signed by: George Chaudhari M.D. 02/10/2024 8:49 AM Neck CTA 02/10/24 07:45 CT ANGIOGRAPHY OF THE NECK WITH CONTRAST CLINICAL HISTORY: neuro deficit, acute stroke suspected COMPARISON STUDY: CTA of the neck October 01, 2023. Technique: CT angiography of the carotid and vertebral arteries was obtained using Optiray and 3D reconstruction on an independent workstation. NASCET criteria was utilized. Automated exposure control was utilized for the study. A dose lowering technique was utilized adhering to the principles of ALARA. Findings: Visualized portions of the cervical lymphadenopathy. There are no cervical spine fracture. The bilateral common carotid, cervical internal carotid and vertebral arteries are patent. No acute dissection is present. Mild luminal narrowing of the distal cervical and petrous portions of the left cervical internal carotid artery is unchanged since CTA of October 01, 2023. This remains improved when compared to CT of April 27, 2023. The vertebral arteries are patent. There is no aneurysm within the neck. IMPRESSION: 1. No change since CTA of October 01, 2023. No acute dissection within the neck. 2. Mild luminal narrowing of the distal cervical and petrous portions of the left internal carotid artery, unchanged since prior CTA. Significant improvement compared to earlier CT of April 27, 2023. ACT 112: Negative or not required by law. Electronically signed by: George Chaudhari M.D. 02/10/2024 8:45 AM Code Status & VTE Plan Code Status Full resuscitation Supervising Physician Co-Signing Physician Notes The patient was seen by me. The chart was reviewed. Case discussed with KATHY Luna. Agree with assessment and plan PG Care Time/CCT Total # of Minutes Spent Total Time Spent with Patient: Total time spent is greater than 50% in coordination of care (as documented) at patient's floor/unit and/or counseling patient: 60 minutes Coding Level of Care Code 10134 INT INP/OBS CARE 2/55MIN Diagnoses Tingling of left upper extremity R20.2 Carotid artery dissection I77.71 Headache R51 Time Spent (min) 60
--- NOTE | 2024-02-10 10:58 | Magnetic Resonance Report ---
MR brain wo con CLINICAL HISTORY: Stroke alert, hx left carotid dissection TECHNIQUE: Multiplanar and multisequence MR images of the brain were obtained without intravenous con trast. Comparison: None available at the time of this dictation. FINDINGS: No abnormal restricted diffusion is identified. The white matter is unremarkable. The ventricular sys tem is normal in appearance. No mass is seen. There is no mass effect or midline shift. Focal suscept ibility artifact in the right parietal lobe likely reflects an AVM. No extra axial fluid collections are seen. The corpus callosum, pituitary gland, and cerebellar tonsils appear grossly unremarkable. Flow voids of the major intracranial arterial vessels are identified. The imaged portions of the para nasal sinuses, mastoid air cells, and orbits are unremarkable. IMPRESSION: No acute abnormality and in particular no evidence of acute infarct. ACT 112: Negative or not required by law. Electronically signed by: Gurdeep Jenkins M.D. 02/10/2024 10:57 AM
[2024-02-10] MEDS: GADOBUTROL 30ML VIAL IV ONE (11:20)
--- NOTE | 2024-02-10 11:49 | Magnetic Resonance Report ---
CLINICAL HISTORY: Stroke alert, hx left carotid dissection TECHNIQUE: MRI of the cervical spine is performed utilizing various T1 and T2 sequences in the axial and sagittal planes. IV contrast was administered for this examination. Comparison: None available at the time of this dictation. FINDINGS: The alignment is anatomical. Disks are normal in height and signal. C2-C3: Unremarkable. C3-C4: Unremarkable. C4-C5: Unremarkable. C5-C6: Unremarkable. C6-C7: Unremarkable. C7-T1: Unremarkable. The spinal ligaments are intact, without evidence of disruption or abnormal signal intensity. The spi nal cord is normal in signal intensity and there is no evidence of cord contusion. There is no eviden ce of an extradural, intradural, extramedullary or intramedullary lesion. Visualized soft tissues are normal. Visualized brain parenchyma is normal. IMPRESSION: No evidence of cord compression or significant neuroforaminal narrowing. ACT 112: Negative or not required by law. Electronically signed by: Gurdeep Jenkins M.D. 02/10/2024 11:47 AM
[2024-02-10] MEDS ORDERED: ACETAMINOPHEN 500 MG TAB PO PRN (12:38)
[2024-02-10] MEDS ORDERED: ONDANSETRON INJ 2 MG/ML 2 ML VIAL IV PRN (12:38)
--- NOTE | 2024-02-10 13:39 | Neurology Consultation ---
Date of Consultation February 10, 2024 Assessment & Plan (1) Carotid artery dissection: (2) Tingling of left upper extremity: (3) Headache: (4) Cerebral cavernoma: Plan 33-year-old female with a history of distal left internal carotid artery dissection identified in April 2023 potentially related to a previous chiropractic neck manipulation. No associated stroke. 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 She has been experiencing intermittent headaches that have been responding to Ubrelvy. She presented to the emergency department this morning for further assessment of left upper extremity numbness and low-grade headache that began the previous night. Her symptoms are currently resolved. Recent imaging including CTA of the head and neck, MRI of the brain, and MRI of the cervical spine does not reveal any acute abnormality. The distal left internal carotid artery dissection is stable, and actually improved compared with a previous CTA done this past April. There was no evidence of stroke or hemorrhage on brain MRI. The small right parietal lobe cavernoma is stable. I do not think her current presentation would be related to her stable, improving, distal left internal carotid artery dissection. Although her left upper extremity symptoms could have been radicular or due to ulnar nerve compression, it is also possible that they could be related to her right parietal lobe cavernoma. In looking at the images in detail, the lesion does appear to be near the arm area of the primary or association sensory cortex for the left upper limb. I do not believe the episode was due to seizure activity, however. Sometimes cavernoma's may cause transient symptoms as blood may slowly leak into surrounding brain tissue. There is no obvious evidence of acute hemorrhage or significant change in this cavernoma, however, compared with previous studies. May continue with aspirin 81 mg/day for the time being. Going forward, however, if patient's carotid dissection remains stable and/or continues to show signs of radiographic improvement, would recommend discontinuing aspirin. Patient may continue to utilize Ubrelvy as an outpatient for acute headache treatment. She should continue to monitor her headache frequency and make note of any migrainous symptoms such as nausea or light or sound sensitivity. If she experiences any recurrence of headache and/or associated left upper extremity numbness, would recommend obtaining an outpatient brain MRI and EEG in light of the location of the above cavernoma. Again, however, her presentation is not highly suggestive of focal seizures. Nonetheless, cavernoma's are a common cause of focal onset seizures. Patient may follow-up with myself or one of our GT's in 2 to 3 weeks in neurology clinic. History of Present Illness Reason for Consultation: History of left carotid dissection, left arm numbness Requesting Physician: Ting Attending Physician: Spencer Rust MD History of Present Illness The patient is a 33-year-old female with a chief complaint of left upper extremity numbness and low-grade headache that began last night while lying in bed using her smart phone. She went about the rest of her evening and did not notice any particular weakness or loss of dexterity of the hand. She went to bed, but upon awakening this morning continue to perceive numbness for the left upper limb, primarily the palmar aspect of the left hand, radiating up the medial aspect of the forearm, no associated wrist, elbow, or shoulder pain. No significant neck pain. Her symptoms are currently resolved. Past medical history notable for a focal dissection of the left internal carotid artery from the skull base to the distal cervical portion of this vessel identified on CT angiography completed at [facility] April 26, 2023. She reported having a chiropractic manipulation of the neck on April 20, 2023. She had presented with a left-sided posterior headache and pulsatile tinnitus at that time. No stroke was identified on brain MRI although a probable 7.2 mm cavernoma was identified in the right posterior parietal lobe. She was discharged on baby aspirin in light of the carotid dissection. She had been seen by Dr. Novak at that time and has had several follow-up visits in our office with Genia Cantu PA-C. She had another follow-up brain MRI completed this past June in the context of headache that revealed no acute abnormality, no change in the previously seen subcentimeter cavernoma with adjacent small developmental venous anomaly in the periventricular right parietal lobe. She had another follow-up CTA of the neck completed this past September that revealed interval improvement of the previously seen left carotid dissection. She was recently given a prescription for Ubrelvy for acute migraine treatment, this medication has been effective and well-tolerated. She is also prescribed carvedilol. She underwent a repeat CTA of the head and neck today. No abnormality on CTA of the head. CTA of the neck stable compared with the October 01, 2023 study. There is mild luminal narrowing of the distal cervical and petrous portions of the left internal carotid artery, actually improved compared with CTA completed April 27, 2023. Brain MRI completed today negative for acute or subacute stroke. There is an area of focal susceptibility artifact in the right parietal lobe consistent with known cavernoma in this area. MRI of the cervical spine completed today unremarkable, no significant disc degeneration or facet arthropathy, no spinal stenosis or neuroforaminal narrowing, spinal cord signal normal. I independently the images pertaining to the above MRIs and CTAs and was able to appreciate the findings as described by radiology. Of note, the patient informs me that she did receive an influenza vaccination into the left upper arm last Sunday. Allergies Allergy/AdvReac Type Severity Reaction Status Date / Time cephalexin Allergy Unknown hives Verified 10/10/23 13:46 sulfamethoxazole Allergy Unknown hives Verified 10/10/23 13:46 trimethoprim Allergy Unknown hives Verified 10/10/23 13:46 Home Medications Medication Instructions Recorded Confirmed Type acetaminophen 500 mg tablet 500 mg PO QID PRN Headache 06/19/23 02/10/24 History (Tylenol Extra Strength) aspirin 81 mg tablet,delayed 81 mg PO DAILY 06/19/23 02/10/24 History release multivitamin [Daily Multi-Vitamin] 2 gummy PO DAILY 06/22/23 02/10/24 History ubrogepant 100 mg tablet (Ubrelvy) 100 mg PO ONCE PRN Migraine 07/16/23 02/10/24 Rx Headache #10 tabs hydrochlorothiazide 12.5 mg capsule 12.5 mg PO DAILY 10/10/23 02/10/24 History carvedilol 6.25 mg tablet 12.5 mg PO BID 02/10/24 02/10/24 History Patient History Medical History Hypertension Vertigo Abnormal CT of brain Ureteral calculus, left Hemangioma [id number] right hepatic lob hyperechoic nodule, possible hemangioma on 12/14/22 abdominal u/s History of COVID-19 hx - no hosp; resolved Surgical History History of surgical removal of pilonidal cyst S/P wisdom tooth extraction Hx of appendectomy Family History Mother Ovarian cancer diagnosed in 20s Hypertension Father , age 67 of an [place] Heart disease Myocardial infarction Sister Migraine headache Social History Smoking Status: Never smoker Tobacco Type: Cigarettes Age Started Using Tobacco: 16; Age Quit Using Tobacco: 30; Cigarettes Per Day: She was a variable smoker over this time smoking on and off.; Second Hand Exposure: No; Do You Dip or Chew Tobacco: No; Hx Alcohol Use: No Hx Substance Use: No Preferred Language: Hungarian Communication Ability: Effective Extruder Operator Vertical Required: No Beliefs That Will Affect Care: None marital status: Single marital status details: JULIOCESAR: Emerson (24) [phone] Current Living Situation: Significant Other Current Living Situation Comment: Kaylah andBillie children current occupational status: employed current occupation: [employer] for [employer] In [employer] How many Children do You have: 2 Other Information That Helps Us Care for You: No Feels Safe at Home: Yes Safety Concerns: Feels Safe At This Time during the past year weight has: increased > 10 lbs Assistive Devices: None Review of Systems Constitutional: no fever and no chills Eyes: no blind spots and no diplopia Ear, Nose, Mouth, Throat: no hearing loss Respiratory: no cough and no dyspnea Cardiovascular: no chest pain and no palpitations Gastrointestinal: no nausea and no vomiting Genitourinary: no dysuria Musculoskeletal: no myalgia and no muscle weakness Integumentary: no rash and no lesions Neurologic: as per Subjective / HPI Psychiatric: no depression and no anxiety Hematologic / Lymphatic: no easy bleeding and no easy bruising Exam (Neuro) Constitutional: well developed and well nourished; no acute distress Eyes: normal visual romo by confrontation, PERRL and EOM intact bilaterally; no nystagmus Neurologic: Oriented to:: Person, Place and Time Memory: Short Term Intact and Remote Intact Attention: Span Intact and Concentration Intact Speech Fluency: negative Dysarthria or Dysfluency Speech Aphasia: negative Aphasia Fund of Knowledge: Current Events, Past History and Vocabulary Cranial Nerves: Normal II, III, IV, , V, VII, VIII, IX, X, XI and XII Motor Strength: Normal Lower Extremities and Normal Upper Extremities Motor Tone: Normal Lower Extremities and Normal Upper Extremities Muscle Bulk/Involuntary Movements: No Involuntary Movements; negative Muscle Atrophy Sensation: Light Touch Intact, Pain/Temperature Intact and Proprioception Intact Coordination: Normal; negative Dysdiadochokinesia, Finger-Nose Abnormal or Heel-Rosa Abnormal Deep Tendon Reflexes: Rt Triceps: 2+, Lt Triceps: 2+, Rt Biceps: 2+, Lt Biceps: 2+, Rt Brachioradialis: 2+, Lt Brachioradialis: 2+, Rt Patellar: 2+, Lt Patellar: 2+, Rt Ankle: 2+ and Lt Ankle: 2+ Special Tests: negative Babinski Present Results & Data Vital Signs (Past 12 Hours) Vital Signs Temp Pulse Pulse Resp BP BP Pulse Ox 02/10/24 12:46 81 02/10/24 12:44 36.7 C 69 18 137/81 96 02/10/24 11:31 76 18 126/92 95 02/10/24 10:27 82 16 139/99 96 02/10/24 08:52 98 02/10/24 08:51 77 18 142/107 H 98 02/10/24 08:40 36.6 C 86 20 142/107 H 95 02/10/24 08:08 88 16 161/126 H 98 02/10/24 07:43 81 02/10/24 07:17 36.5 C 76 20 141/99 H 97 O2 Del Method O2 Flow Rate 02/10/24 12:46 02/10/24 12:44 Room Air 02/10/24 11:31 02/10/24 10:27 Room Air 02/10/24 08:52 Room Air 0 02/10/24 08:51 Room Air 02/10/24 08:40 Room Air 02/10/24 08:08 Room Air 02/10/24 07:43 02/10/24 07:17 Room Air Laboratory Results WBC 7.56, hemoglobin 13.9, hematocrit 41.1, platelet count 364, sodium 140, potassium 3.6, BUN 10, creatinine 0.72, glucose 109, calcium 9.5, magnesium 2.0, AST 16, ALT 18 Diagnostic Findings An electrocardiogram reveals a normal sinus rhythm, 82 bpm. An echocardiogram completed in July 2022 was normal. Coding Level of Care Code 02626 INT INP/OBS CARE 375MIN Diagnoses Carotid artery dissection I77.71 Tingling of left upper extremity R20.2 Headache R51 Cerebral cavernoma Q28.3 Time Spent (min) 90 Comment Total time includes patient contact, chart review, counseling, note preparation
--- NOTE | 2024-02-10 16:06 | XCELERA ---
[id number]
[2024-02-10] MEDS: carvediloL 12.5 MG TAB PO SCH (17:51)
[2024-02-10 20:47] VITALS: RESP 18
[2024-02-11 04:44] VITALS: O2SAT 97
[2024-02-11 06:09] LABS: Basophils # (auto) 0.05 K/uL (0.00-0.20); Basophils % (auto) 0.7 %; Eosinophils # (auto) 0.26 K/uL (0.00-0.50); Eosinophils % (auto) 3.6 %; Hematocrit (blood only) 38.4 % (37.0-47.0); Hemoglobin 12.8 g/dl (12.0-16.0); Immature Granulocytes # (auto) 0.02 K/uL (0.01-0.20); Immature Granulocytes % (auto) 0.3 %; Lymphocytes % (auto) 26.1 %; Mean Corpuscular Hemoglobin 27.9 pg (25.0-34.0); Mean Corpuscular Hgb Conc 33.3 g/dL (32.0-36.0); Mean Corpuscular Volume 83.8 fL (80.0-100.0); Monocytes # (auto) 0.68 K/uL (0.11-0.59); Monocytes % (auto) 9.4 %; Neutrophils # (auto) 4.36 K/uL (1.40-6.50); Neutrophils % (auto) 59.9 %; Platelet Count 317 K/uL (130-400); RDW Coefficient of Variation 12.5 % (11.5-14.5); RDW Standard Deviation 37.8 fL (36.4-46.3); Red Blood Count 4.58 M/uL (4.20-5.40); White Blood Count 7.27 K/ul (4.8-10.8)
[2024-02-11 06:24] LABS: BUN Creatinine Ratio 12.7 (10-20); Calcium 9.1 mg/dl (8.6-10.3); Creatinine Clr Calc Pharmacy 138.5 ml/min; Potassium 3.7 mmol/L (3.5-5.1)
[2024-02-11] MEDS: MULTIVITAMIN TAB PO SCH (08:15)
[2024-02-11] MEDS: ASPIRIN 81 MG ECTAB PO SCH (08:15)
[2024-02-11] MEDS: hydroCHLOROthiazide 25 MG TAB PO SCH (08:15)
[2024-02-11 11:20] VITALS: PULSE 81; TEMP 97.5
--- NOTE | 2024-02-11 11:20 | Neurology Progress Note ---
Date of Service February 11, 2024 Assessment & Plan (1) Carotid artery dissection: (2) Tingling of left upper extremity: (3) Headache: (4) Cerebral cavernoma: Plan Patient has a history of left internal carotid artery dissection, April 27, 2023, probably related to chiropractic manipulation. She was treated and improved. She was followed as an outpatient in neurology clinic for intermittent headaches. Ubrelvy helps the migrainous component. Currently, she is asymptomatic and back to baseline. Neurologic examination is no focal findings, meningeal signs, or encephalopathy. MRI of the brain is unchanged and MRI of the cervical spine is unremarkable/normal. The patient has a history of presenting with headache and left upper extremity numbness/tingling. Obviously this is resolved, but likely was a complicated migraine. She has a very small, incidental, right posterior parietal cavernoma, which has been stable since April 2023. This is likely congenital. The patient has a very mild PFO noted on echocardiogram The patient has had no seizure activity. Recommendations: 1. Agree with 81 mg aspirin tablet daily for now 2. I see no need for additional neurologic testing or treatment. 3. Follow-up with neurology PA in 2 weeks or so. We will consider additional medication for headache prevention and treatment at that time. Overall, I spent a total of 50 minutes with this case including review of records, review of MRI films, direct evaluation the patient at bedside, report generation, and discussion of the case with the patient and RN at bedside as well as Dr. Fernández, including differential diagnosis and treatment options. Admission and Anticipated Discharge Date Admission Date: February 10, 2024 Subjective Patient has no headache this morning and no numbness or tingling in the arms or legs. Her speech is normal and she is not dizzy. Patient presented February 09 with a significant headache on the left side and left arm numbness and tingling. I saw this patient April 27, 2023 for severe headache and neck pain that was secondary to focal dissection of the left distal internal carotid artery. She had an MRI of the brain which showed a very small (subcentimeter) right posterior parietal cavernoma. She was followed by neurology for intermittent headaches and has been doing well. If her headache becomes severe she will take Ubrelvy which helps. Tylenol can help lesser headaches. She has a headache most days. Current testing revealed a normal CT scan of the head. CT angiography of the head was unremarkable. CT angiography of the neck showed no dissection. MRI of the brain was unchanged with no acute or new findings compared to the previous study. I reviewed these films. Cervical spine MRI was unremarkable/normal as well. I reviewed these MRI films. Blood pressure is 139/80 and she is afebrile. CBC was unremarkable. CHEM profile is unremarkable/normal as well. Results & Data Vital Signs (Past 12 Hours) Vital Signs Temp Pulse Pulse Resp BP Pulse Ox O2 Del Method 02/11/24 09:26 72 02/11/24 07:40 36.8 C 77 18 139/86 97 Room Air 02/11/24 04:00 36.6 C 81 18 122/81 97 Room Air 02/11/24 00:00 81 02/10/24 23:20 36.7 C 64 18 123/74 95 Room Air Exam (Neuro) Physical Exam: The patient is awake, alert, and attentive, with normal speech and communication. Mood is normal and affect is appropriate. The patient is fully oriented and has intact long and short term memory. Extraocular eye muscles are intact without nystagmus. Facial strength and symmetry is normal bilaterally. Facial sensation is normal bilaterally in all 3 divisions of the fifth cranial nerve. Tongue is midline with normal strength bilaterally. Stance sitting up in bed is normal. Patient has no limitations of movement of her neck or tenderness. Coordination of the arms is normal, without tremor or ataxia bilaterally. Motor strength is 5/5 in all major muscle groups of the arms and legs bilaterally, both proximally and distally. Muscle tone is normal in the limbs, without rigidity or spasticity. PG Care Time/CCT Total # of Minutes Spent Total Time Spent with Patient: Total time spent is greater than 50% in coordination of care (as documented) at patient's floor/unit and/or counseling patient: Coding Level of Care Code 60000 SUB INP/OBS CARE 3/50MIN Diagnoses Carotid artery dissection I77.71 Tingling of left upper extremity R20.2 Headache R51 Cerebral cavernoma Q28.3 Time Spent (min) 50
--- NOTE | 2024-02-11 12:30 | Discharge Summary ---
<Statement entered by Sheila Fernández MD - 02/11/24 18:19> I have reviewed vital signs, chart notes, labs and imaging. I have also discussed the management of the patient with the GT and I agree with the exam findings documented in the history and physical examination and the documented assessment and plan unless otherwise stated below. 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 Presented to ED on 02/09 with LUE paresthesias starting in the evening of 02/08. Had associated mild headache, no additional symptoms. Stroke alert was called. Initial imaging unchanged from prior imaging as seen in patient's chart. Last neurology visit was in September 2023, with plans to update imaging 6 months from that visit. - CT head, CTA head/neck- no acute or cranial findings, no large vessel occlusion, no intracranial aneurysm; CTA head without change since 10/01/2023; mild luminal narrowing at distal cervical and petrous portions of the LICA, unchanged; improvement compared to CT 04/27/2023. - MRI of the brain and cervical spine- without acute findings; focal susceptibility artifact in the right parietal lobe, possible AVM - Notes from stroke alert with [place] have been reviewed - Echo- EF 55 to 60%, no LVH, no valvular abnormalities, normal RVSP, very small right to left interatrial shunt; pulmonary shunt versus PFO - EKG- NSR, heart rate 74 bpm - Continue aspirin 81 mg daily per neurology recs - May continue Ubrelvy as outpatient for acute migraine treatment Neurology was consulted. Appreciated Dr. Armstrong's input; decisions made based off of neurology's recommendations 02/10: Patient seen sitting up in bed at time of visit, with her at bedside in chair. Reports no current symptoms of tingling in the left arm, leg, right arm, or leg. Denies ongoing headache. Reports no additional symptoms to include chest pain, shortness of breath, abdominal pain, or N/V/D/C. Discussed diagnostic findings and recommendations with patient. Neuro exam was WNL. Patient agreeable to discharge home. (2) Carotid artery dissection: April 2023 secondary to chiropractic manipulation - [place] [facility] (3) Headache: Patient with history of migraines - Held Ubrelvy while inpatient, may continue outpatient Plan Dispo: Patient medically stable for discharge, discharge today VTE prophylaxis: SCDs Code: Full Complete patient education of current condition and management was provided. All questions that the patient asked were answered, and the patient demonstrated complete understanding. Admission HPI Per Admitting Provider Attending: Dr. Rust This is a 33-year-old female that presents for left-sided paresthesias of the upper extremity. She presented as a stroke alert. Patient had a left carotid dissection secondary chiropractic manipulation in April 2023. Patient does [place] [facility] [place] and was last seen by Genia Cantu PA-C 10/10/2023. CTA of the neck this morning shows no change since CTA of October 01, 2023. Mild luminal narrowing of the distal cervical and petrous portions of the left internal carotid artery, unchanged since prior CTA. Significant improvement compared to earlier CT of April 27, 2023. CTA of the head shows no large vessel occlusion. There is no intracranial aneurysm. Blood pressure slightly elevated 142/107. Patient is afebrile. Symptoms started last evening at approximately 9 PM. She complained at that t jossie that her left arm was tingly and had some mild discomfort. She also had a mild headache which is exacerbated with deep breath and cough. No symptoms in the face or legs. No vision changes. No slurred speech. No weakness to upper or lower extremities. Mild headache. History of migraines. Patient with no other acute complaints at this time. Admission Exam Per Admitting Provider GENERAL : No acute distress EYES: No icterus, gaze conjugate NOSE: No evidence of epistaxis MOUTH: No lesions or candidiasis NECK: Supple. No appreciation of carotid bruits. No nuchal rigidity. No pain with rotation of neck to the right or to the left against hand strength. LUNGS: CTA B/L, no wheezes, rales or rhonchi HEART: Regular, rate controlled ABDOMEN: Soft, NT, ND, BS Present EXTREMITIES: No LE edema, pedal pulses intact NEURO: A&OX3 pupils equal round and reactive to light bilaterally. Extraocular movement is intact. Tongue is midline. No facial droop. Strength is equal and appropriate to bilateral upper and lower extremities. No pronator drift. Cerebellar function is intact with [id number], rapid alternating movements, [id number]. Toes are downgoing bilaterally. Deep tendon reflexes 2/4 to the bicep, brachioradialis, and patellar tendons. Memory is intact. Patient is a good historian. No appreciation of focal deficits. Discharge Exam General: No acute distress, well developed. Skin: Warm and dry, without rashes or lesions. No cyanosis or clubbing Head: Normocephalic, atraumatic Eyes: PERRL, conjunctivae clear, sclera non-icteric; EOM intact ENT: External ear and ear canal without swelling; nose atraumatic; good dent ition, tongue normal appearance, pharynx normal without tonsillar swelling or exudate Neck: Supple, no LAD; no JVD Cardio: RRR, no M/G/R, S1 and S2 normal Resp: Chest wall symmetric, normal respiratory effort; No respiratory distress, Lungs CTA in all lobes bilaterally, no wheezes, rales, or rhonchi Abdomen: Soft, symmetric, nontender; No masses or hepatosplenomegaly Genital: Deferred MSK: No deformities, strength equal and symmetric, full ROM throughout; sensation normal to UE/LE. Pulses palpable and equal Neuro: Awake, alert; Muscle strength 5/5 bilaterally in UE/LE; Sensation intact bilaterally; CN intact; no facial droop, no pronator drift, intact finger-nose testing, deep tendon reflexes equal. Psych: Appropriate mood and affect; good judgement and insight. is present in the room for exam. Discharge Plan Discharge Items Patient Disposition: Home - Self-Care Reason For Visit: STROKE ALERT LEFT ARM PARESTHESIAS Discharge Diagnosis: LUE Paresthesias secondary to complex migraine Activity: Resume your previous activity Non-emergency contact: Primary Care Provider Call non-emergency contact if: you have any medication questions, your symptoms worsen, your pain is not controlled, your pain is worsening, your pain is unusual for you and your pain is concerning for you Follow-up/Referrals: Rojelio Lara [Primary Care Provider] - (Your PCP office will call you with a follow up appointment) Diet: Regular Addtl Attending Provider Instructions: You were diagnosed and treated for left arm paresthesias (tingling) which was attributed to a complex migraine. Imaging of your head and neck were completed (CT, CTA, MRI), both revealing no significant changes or acute findings from prior studies. 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 Any indication of a stroke was ruled out through this imaging. Imaging of the heart (echocardiogram) revealed possible pulmonary shunt versus PFO, however this finding was very small and not suspected to be related to current visit or symptoms. Medication recommendations at this time include continuation of aspirin 81 mg/day, which may be discontinued if radiographic improvement is seen on follow- up imaging of the prior carotid dissection. You may continue at home Ubrogepant (Ubrelvy) for acute headache treatment. Per neurology, please monitor headache frequency as well as migrainous symptoms such as nausea or sensitivity to light/sound. Per neurology recommendations, if you continue to experience recurrence of headaches and/or associated with left upper extremity numbness, provider should consider obtaining an outpatient brain MRI and/or EEG secondary to cavernoma location as noted in above imaging. Please follow-up with neurology clinic in 2-3 week. If you notice increased pain, worsening of symptoms, or any component of the BE FAST acronym, please call your PCP for advice or return to the ED immediately. Balance (trouble standing or walking), Eyes (trouble with vision), Face (facial droop), Arm (weakness/numbness/drifting of arm), Speech (trouble speaking), Time (act fast- go to ED). Pending Studies at Discharge: No Stand-Alone Forms: My [employer], Smoking Cessation Medications and DC Order Prescriptions: Continued Ubrelvy 100 mg tablet 100 mg PO ONCE PRN (Reason: Migraine Headache) Qty: 10 4RF hydrochlorothiazide 12.5 mg capsule 12.5 mg PO DAILY multivitamin [Daily Multi-Vitamin] 2 gummy PO DAILY aspirin 81 mg Tablet,Delayed Release (Dr/Ec) 81 mg PO DAILY acetaminophen [Tylenol Extra Strength] 500 mg Tablet 500 mg PO QID PRN (Reason: Headache) carvedilol 6.25 mg tablet 12.5 mg PO BID Rx Instructions: must administer with a meal/food Discharge Orders: Discharge Order (Routine); Ordered 02/11/24 Ordered By: Logan Christiansen Admission Data Admit Date/Time: 02/10/24 10:00 Attending Provider: Sheila Fernández Admit Provider: Spencer Rust Primary Care Provider: Rojelio Lara Providers: Spencer Rust; Rojelio Armstrong Hospital Stay Data Consultations 02/10/24 08:58 ED Decision to Admit Stat 02/10/24 12:38 Consult Neurology Routine Diagnostic Imagining Performed 02/10/24 07:45 CT angio head w con Stat CT angio neck with con Stat CT head/brain wo con Stat 02/10/24 10:00 MRI Brain [MR brain wo con] Stat MRI Neck [MR cervical spine wo/w con] Stat Pending Results Patient Have Any Pending Studies at Discharge: No Discharge Instructions Given to Patient (Per Discharging Provider) You were diagnosed and treated for left arm paresthesias (tingling) which was attributed to a complex migraine. Imaging of your head and neck were completed (CT, CTA, MRI), both revealing no significant changes or acute findings from prior studies. 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 Any indication of a stroke was ruled out through this imaging. Imaging of the heart (echocardiogram) revealed possible pulmonary shunt versus PFO, however this finding was very small and not suspected to be related to current visit or symptoms. Medication recommendations at this time include continuation of aspirin 81 mg/day, which may be discontinued if radiographic improvement is seen on follow- up imaging of the prior carotid dissection. You may continue at home Ubrogepant (Ubrelvy) for acute headache treatment. Per neurology, please monitor headache frequency as well as migrainous symptoms such as nausea or sensitivity to lig ht/sound. Per neurology recommendations, if you continue to experience recurrence of headaches and/or associated with left upper extremity numbness, provider should consider obtaining an outpatient brain MRI and/or EEG secondary to cavernoma location as noted in above imaging. Please follow-up with neurology clinic in 2-3 week. If you notice increased pain, worsening of symptoms, or any component of the BE FAST acronym, please call your PCP for advice or return to the ED immediately. Balance (trouble standing or walking), Eyes (trouble with vision), Face (facial droop), Arm (weakness/numbness/drifting of arm), Speech (trouble speaking), Time (act fast- go to ED). Total Time Total Time Spent Total Time Spent (In Minutes): 35 minutes Coding [place] [address] INP/OBS DISCH >30 MIN Patient Type Established History Expanded Problem Focused Exam Expanded Problem Focused Medical Decision Making Moderate Complexity Diagnoses Tingling of left upper extremity R20.2 Carotid artery dissection I77.71 Headache R51 Time Spent (min) 35
[2024-02-11 12:37] VITALS: BP 139/86
--- NOTE | 2024-02-12 06:08 | Electrocardiogram Report ---
Test Reason : Blood Pressure : */* mmHG Vent. Rate : 82 BPM Atrial Rate : 82 BPM P-R Int : 140 ms QRS Dur : 80 ms QT Int : 362 ms P-R-T Axes : 51 48 19 degrees QTcB Int : 422 ms Normal sinus rhythm Normal ECG When compared with ECG of 26-Apr-2023 23:12, No significant change was found Confirmed by Watson Johns ([id number]) on 02/12/2024 6:08:22 AM Referred By: REFERRED SELF Confirmed By: Watson Johns
--- NOTE | 2024-02-12 06:09 | Electrocardiogram Report ---
Test Reason : Blood Pressure : */* mmHG Vent. Rate : 74 BPM Atrial Rate : 74 BPM P-R Int : 152 ms QRS Dur : 98 ms QT Int : 396 ms P-R-T Axes : 41 35 0 degrees QTcB Int : 439 ms Normal sinus rhythm Normal ECG When compared with ECG of 10-Feb-2024 07:27, No significant change was found Confirmed by Watson Johns ([id number]) on 02/12/2024 6:08:36 AM Referred By: REFERRED SELF Confirmed By: Watson Johns
== END 2024-02-11 13:17 | disposition home or self-care (01) ==
LOC: ED 07:05 → 2N 07:05 → SUATTDRO 10:00 → 2N 11:41